=== PATIENT | male | born 1965 | race Caucasian/White ===

== ENCOUNTER 2017-11-02 10:09 | Inpatient (IN) | payer BC ==
[~2017-11-02 10:09] MED LIST: Bisacodyl 5 MG Tab PO PRN; Lactated Ringers 1,000 ML IV SCH; Lidocaine 1%/Sod Bicarbonate in NS 8.4% 1 ML Syringe IV PRN; Magnesium Hydroxide 400 MG/5 ML Susp 30 ML Cup PO PRN; Morphine 2 MG/ML Syringe IVPUSH PRN; Morphine PF 1 MG/ML Amp ONE; Naloxone 0.4 MG/ML SDV IVPUSH PRN; Ondansetron 4 MG/2 ML SDV IVPUSH PRN; Sennosides 8.6 MG Tab PO PRN; Sodium Chloride 0.9% 10 ML Syringe FLUSH PRN; diphenhydrAMINE 50 MG/ML SDV IVPUSH PRN
[2017-11-02] MEDS ORDERED: Morphine PF 1 MG/ML Amp ONE (10:12)
[2017-11-02] MEDS ORDERED: Lactated Ringers 1,000 ML IV SCH (11:00)
[2017-11-02] MEDS ORDERED: ceFAZolin 1 GM Vial ONE ×4 (11:02→13:49)
[2017-11-02] MEDS ORDERED: Iodine/Sodium Iodide 2% Tincture 30 ML Bottle ONE (11:02)
[2017-11-02] MEDS ORDERED: Vancomycin 1 GM SDV ONE (11:02)
[2017-11-02] MEDS ORDERED: Bupivacaine 0.25% 30 ML SDV ONE (11:03)
--- NOTE | 2017-11-02 11:17 | PCM.PREANE ---
Preanesthetic Assessment - Anesthesia/Transfusion/Family Hx Anesthesia History: Prior Anesthesia Without Reaction Other Type of Anesthesia Reaction Comment: Difficult Spinal, converted to general with previous anesthetic. Family History of Anesthesia Reaction: No Transfusion History: No Prior Transfusion(s) Type of Transfusion Reactions: Reports: Unknown - Review of Systems General: No Symptoms Pulmonary: No Symptoms Cardiovascular: No Symptoms Gastrointestinal: Other (Occasional Heart Burn) Neurological: No Symptoms, Other (History of back pain with radiculopathy to left leg. Currently does not bother him. ) Other: Reports: None - Physical Assessment NPO Status Date: 11/01/17 NPO Status Time: 23:00 (Water) Pulse: 67 O2 Sat by Pulse Oximetry: 94 Respiratory Rate: 16 Blood Pressure: 157/99 Temperature: 36.9 C Weight: 144 kg ASA Class: 2 Mental Status: Alert & Oriented x3 Airway Class: Mallampati = 2 Dentition: Reports: Normal Dentition Thyro-Mental Finger Breadths: 3 Mouth Opening Finger Breadths: 3 ROM/Head Extension: Full Lungs: Clear to Auscultation, Normal Respiratory Effort Cardiovascular: Regular Rate, Regular Rhythm - Lab Values: Laboratory Last Values MRSA (PCR) Negative 10/14/17 11:33 - Allergies Allergies/Adverse Reactions: Allergies Allergy/AdvReac Type Severity Reaction Status Date / Time No Known Allergies Allergy Verified 10/30/17 15:43 - Anesthesia Plan Pre-Op Medication Ordered: Anxiolytic - Acknowledgements Anesthesia Type Planned: Spinal Pt an Appropriate Candidate for the Planned Anesthesia: Yes Alternatives and Risks of Anesthesia Discussed w Pt/Guardian: Yes Pt/Guardian Understands and Agrees with Anesthesia Plan: Yes PreAnesthesia Questionnaire HEENT History: Reports: Impaired Vision Other HEENT History: wears corective lenses, pharyngitis Cardiovascular History: Reports: None Respiratory History: Reports: None Gastrointestinal History: Reports: GERD, Hiatal Hernia Genitourinary History: Reports: None 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 Musculoskeletal History: Reports: Other (See Below) Other Musculoskeletal History: bilateral knee pain, left SI joint pain, sacroilitis Neurological History: Reports: Other (See Below) Other Neuro History: tremor Psychiatric History: Reports: Depression, Other (See Below) Other Psychiatric History: anxiety attack Endocrine/Metabolic History: Reports: Obesity/BMI 30+ Hematologic History: Reports: None Immunologic History: Reports: None Oncologic (Cancer) History: Reports: None Dermatologic History: Reports: Other (See Below) 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, removed 1985 - Past Surgical History Head Surgeries/Procedures: Reports: None HEENT Surgical History: Reports: None Cardiovascular Surgical History: Reports: None Respiratory Surgical History: Reports: None GI Surgical History: Reports: None Female Surgical History: Reports: None Male Surgical History: Reports: None Neurological Surgical History: Reports: None Musculoskeletal Surgical History: Reports: Arthroscopic Knee Other Musculoskeletal Surgeries/Procedures:: left knee replacement 12/08/16 Oncologic Surgical History: Reports: None Dermatological Surgical History: Reports: None - SUBSTANCE USE Smoking Status *Q: Never Smoker Tobacco Use Within Last Twelve Months: No Second Hand Smoke Exposure: No Recreational Drug Use History: No - HOME MEDS Home Medications: Home Meds Omeprazole 20 mg PO BID 11/03/16 [History] Meloxicam [Meloxicam] 15 mg PO DAILY PRN 10/30/17 [History] Orphenadrine [Norflex] 100 mg PO BEDTIME 10/30/17 [History] traMADol HCl [Tramadol HCl] 50 mg PO Q12H PRN 10/30/17 [History] - CURRENT (IN HOUSE) MEDS Current Meds: Current Medications Bisacodyl (Dulcolax) 5 mg PO DAILY PRN PRN Reason: Constipation Cyclobenzaprine HCl (Flexeril) 10 mg PO TID PRN PRN Reason: Spasms Diphenhydramine HCl (Benadryl) 25 mg IVPUSH Q4H PRN PRN Reason: Nausea Docusate Sodium (Colace) 100 mg PO BID MARIELLE Famotidine (Pepcid) 20 mg PO Q12H MARIELLE Cefazolin Sodium/Dextrose 2 gm (/ Premix) 50 mls @ 100 mls/hr IV Q8H MARIELLE Stop: 11/02/17 23:14 Lactated Ringer's (Ringers, Lactated) 1,000 mls @ 125 mls/hr IV ASDIRECTED MARIELLE Stop: 11/02/17 18:00 Ketorolac Tromethamine (Toradol) 15 mg IVPUSH Q6H PRN PRN Reason: Pain Lidocaine/Sodium Bicarbonate (Buffered Lidocaine 1% In Ns 8.4%) 0.25 ml IV ONETIME PRN PRN Reason: Prior to IV Start Stop: 11/02/17 18:00 Magnesium Hydroxide (Milk Of Magnesia) 30 ml PO BID PRN PRN Reason: Constipation Morphine Sulfate (Morphine) 2 mg IVPUSH Q2H PRN PRN Reason: Breakthrough Pain Naloxone HCl (Narcan) 0.1 mg IVPUSH Q5M PRN PRN Reason: Oversedation Ondansetron HCl (Zofran) 4 mg IVPUSH Q6H PRN PRN Reason: Nausea/Vomiting Oxycodone/Acetaminophen (Percocet 325-5 Mg) 1 - 2 tab PO Q4H PRN PRN Reason: Pain Rivaroxaban (Xarelto) 10 mg PO DAILY MARIELLE Senna (Senna) 8.6 mg PO BID PRN PRN Reason: Constipation Sodium Chloride (Saline Flush) 10 ml FLUSH ASDIRECTED PRN PRN Reason: Keep Vein Open Discontinued Medications Morphine Sulfate 8 mg/Epinephrine HCl 0.3 mg/Cefuroxime Sodium 750 mg/Ketorolac Tromethamine 30 mg/Sodium Chloride 27.9 ml 0 mg .XX ONETIME ONE Stop: 11/02/17 06:45 Lactated Ringer's (Ringers, Lactated) 1,000 mls @ 125 mls/hr IV ASDIRECTED [facility] Morphine Sulfate (Duramorph Pf) Confirm Administered Dose 1 mg .ROUTE .STK-MED ONE Stop: 11/02/17 09:40 Morphine Sulfate (Duramorph Pf) Confirm Administered Dose 1 mg .ROUTE .STK-MED ONE Stop: 11/02/17 10:13
[2017-11-02] MEDS ORDERED: Lactated Ringers 1,000 ML ONE ×3 (11:38→13:02)
[2017-11-02] MEDS ORDERED: Propofol 200 MG/20 ML SDV ONE ×2 (11:38→13:18)
[2017-11-02] MEDS ORDERED: Lidocaine 1% 6 ML ONE (11:39)
[2017-11-02] MEDS ORDERED: Midazolam 1 MG/ML 2 ML SDV ONE ×2 (11:39→11:48)
[2017-11-02] MEDS ORDERED: fentaNYL 250 MCG/5 ML SDV ONE (11:39)
[2017-11-02] MEDS ORDERED: Ketamine 500 mg/10 ML MDV ONE (12:28)
[2017-11-02] MEDS ORDERED: Ketorolac 30 MG/ML SDV ONE (13:00)
[2017-11-02] MEDS ORDERED: Ondansetron 4 MG/2 ML SDV ONE (13:02)
[2017-11-02] MEDS ORDERED: Dexamethasone 4 MG/ML 5 ML MDV ONE (13:03)
[2017-11-02] MEDS ORDERED: Ondansetron 4 MG/2 ML SDV IVPUSH PRN (13:17)
[2017-11-02] MEDS ORDERED: diphenhydrAMINE 50 MG/ML SDV IVPUSH PRN (13:17)
[2017-11-02] MEDS ORDERED: ePHEDrine 50 MG/ML SDV IVPUSH PRN (13:17)
[2017-11-02] MEDS: Morphine 8 MG, EPINEPHrine 0.3 MG, Cefuroxime 750 MG, Ketorolac 30 MG, Sodium Chloride ... ONE ×5 (13:34)
--- NOTE | 2017-11-02 14:26 | PCM.POSTAN ---
POST ANESTHESIA ASSESSMENT - MENTAL STATUS Mental Status: Alert, Oriented - VITAL SIGNS Pulse Rate: 76 SaO2: 94 Resp Rate: 17 Blood Pressure: 120/82 Temperature: 36.7 C - RESPIRATORY Respiratory Status: Respiratory Rate WNL, Airway Patent, O2 Saturation Stable, Supplemental Oxygen - CARDIOVASCULAR CV Status: Pulse Rate WNL, Blood Pressure Stable - GASTROINTESTINAL GI Status: No Symptoms - PAIN Pain Score: 0 - POST OP HYDRATION Hydration Status: Adequate & Stable
--- NOTE | 2017-11-02 15:03 | CR ---
Right knee: AP and lateral views of the right knee were obtained. Comparison: Previous right knee study of 04/23/16. Knee prosthesis is seen. Components are aligned. Underlying bony structures are intact. Soft tissue air is noted from the surgical procedure. No underlying bony abnormality is seen. Impression: 1. Satisfactory postop radiographic appearance of recently placed right knee prosthesis. Diagnostic code #2
[2017-11-02] MEDS ORDERED: HYDROmorphone 0.5 MG/0.5 ML Syringe ONE (15:27)
[2017-11-02] MEDS ORDERED: HYDROmorphone 1 MG/ML Syringe IVPUSH ONE (15:35)
[2017-11-02] MEDS: Acetaminophen/oxyCODONE 325-5 MG Tab PO PRN (19:20)
[2017-11-02] MEDS: ceFAZolin 1 GM in Premix Bag 1 BAG IV SCH (21:21)
[2017-11-02] MEDS: ceFAZolin 2 GM in Premix Bag 1 BAG IV SCH (21:21)
[2017-11-02] MEDS: Famotidine 20 MG Tab PO SCH (21:26)
[2017-11-02] MEDS: Docusate Sodium 100 MG Cap PO SCH (21:26)
[2017-11-02] MEDS: Cyclobenzaprine 10 MG Tab PO PRN (22:13)
--- NOTE | 2017-11-02 22:30 | PCM.CONS ---
H&P History of Present Illness - General Date of Service: 11/02/17 Admit Problem/Dx: Admission Diagnosis/Problem Admission Diagnosis/Problem Osteoarthritis of knee Source of Information: Patient, Family, RN, RN Notes Reviewed, Significant Other , Other (Surgical notes) History Limitations: Reports: No Limitations - History of Present Illness Initial Comments - Free Text/Narative: Mat Allen is a 52 yo male patient of Dr. Last who is post-operative day 0 of right TKA. Hospital medicine was consulted for post-operative medical care. At this time he is resting comfortably in bed. Pain is controlled. He denies any chest pain, shortness of breath, palpitations, nausea, or vomiting. He carries a history of: Prior left TKA, impaired vision, GERD, depression, anxiety, obesity. He was never a smoker. He is a full code. His primary care provider is Jaron Rodriguez PA-C, here at [facility]. Right Knee Pain Score (Numeric/FACES): 2 - Related Data Allergies/Adverse Reactions: Allergies Allergy/AdvReac Type Severity Reaction Status Date / Time No Known Allergies Allergy Verified 11/02/17 16:31 Home Medications: Home Meds Omeprazole 20 mg PO BID 11/03/16 [History] Meloxicam [Meloxicam] 15 mg PO DAILY PRN 10/30/17 [History] Orphenadrine [Norflex] 100 mg PO BEDTIME 10/30/17 [History] traMADol HCl [Tramadol HCl] 50 mg PO Q12H PRN 10/30/17 [History] Past Medical History HEENT History: Reports: Impaired Vision Other HEENT History: wears corective lenses, pharyngitis Cardiovascular History: Reports: None Respiratory History: Reports: None Gastrointestinal History: Reports: GERD, Hiatal Hernia Genitourinary History: Reports: None 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 Musculoskeletal History: Reports: Other (See Below) Other Musculoskeletal History: bilateral knee pain, left SI joint pain, sacroilitis Neurological History: Reports: Other (See Below) Other Neuro History: tremor Psychiatric History: Reports: Depression, Other (See Below) Other Psychiatric History: anxiety attack Endocrine/Metabolic History: Reports: Obesity/BMI 30+ Hematologic History: Reports: None Immunologic History: Reports: None Oncologic (Cancer) History: Reports: None Dermatologic History: Reports: Other (See Below) 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, removed 1984 - Past Surgical History Head Surgeries/Procedures: Reports: None HEENT Surgical History: Reports: None Cardiovascular Surgical History: Reports: None Respiratory Surgical History: Reports: None GI Surgical History: Reports: None Female Surgical History: Reports: None Male Surgical History: Reports: None Neurological Surgical History: Reports: None Musculoskeletal Surgical History: Reports: Arthroscopic Knee Other Musculoskeletal Surgeries/Procedures:: left knee replacement 12/08/16 Oncologic Surgical History: Reports: None Dermatological Surgical History: Reports: None Social & Family History - Family History Family Medical History: Noncontributory - Tobacco Use Smoking Status *Q: Never Smoker Used Tobacco, but Quit: Yes Month Tobacco Last Used: states he stopped smoking long ago Second Hand Smoke Exposure: No - Caffeine Use Caffeine Use: Reports: Coffee, Soda - Recreational Drug Use Recreational Drug Use: No Drug Use in Last 12 Months: No H&P Review of Systems - Review of Systems: Review Of Systems: See Below General: Reports: No Symptoms. Denies: Fever, Chills, Malaise, Weakness, Fatigue HEENT: Reports: No Symptoms. Denies: Ear Pain, Eye Pain, Sinus Congestion, Sore Throat, Visual Changes Pulmonary: Reports: No Symptoms. Denies: Shortness of Breath, Wheezing, Pleuritic Chest Pain, Cough, Sputum Cardiovascular: Reports: No Symptoms. Denies: Chest Pain, Palpitations, Dyspnea on Exertion, Edema Gastrointestinal: Reports: No Symptoms. Denies: Abdominal Pain, Constipation, Diarrhea, Nausea, Vomiting Genitourinary: Reports: No Symptoms. Denies: Dysuria, Frequency, Burning, Pain , Urgency Musculoskeletal: Reports: Joint Pain (right knee - 2/10 ), Muscle Pain (right leg - Flexeril given ). Denies: Neck Pain, Shoulder Pain, Arm Pain, Back Pain Skin: Reports: No Symptoms Psychiatric: Reports: No Symptoms Neurological: Reports: No Symptoms Hematologic/Lymphatic: Reports: No Symptoms Immunologic: Reports: No Symptoms Exam - Exam Exam: See Below - Vital Signs Vital Signs: Last Vital Signs Temp 98.6 F 11/02/17 19:43 Pulse 86 11/02/17 19:43 Resp 20 11/02/17 19:43 BP 142/92 H 11/02/17 19:43 Pulse Ox 94 L 11/02/17 19:43 Weight: 317 lb 7.45 oz - Exam Quality Assessment: DVT Prophylaxis General: Alert, Oriented, Cooperative. No: Mild Distress HEENT: Conjunctiva Clear, EACs Clear, EOMI, Hearing Intact, Mucosa Moist & Hepler , Nares Patent, Normal Nasal Septum, Posterior Pharynx Clear, PERRLA Neck: Supple, Trachea Midline. No: Lymphadenopathy, JVD Lungs: Clear to Auscultation, Normal Respiratory Effort Cardiovascular: Regular Rate, Regular Rhythm GI/Abdominal Exam: Normal Bowel Sounds, Soft, Non-Tender, No Organomegaly, No Distention, No Abnormal Bruit, No Mass, Pelvis Stable (Male) Exam: Deferred Rectal (Males) Exam: Deferred Back Exam: Normal Inspection, Full Range of Motion Extremities: No Pedal Edema, Normal Capillary Refill, Other (JOSE MANUEL bandage on right leg. Bandage is dry and intact. Cooling pack in place. ) Peripheral Pulses: 2+: Radial (L), Radial (R), Posterior Tibial (L), Posterior Tibial (R), Dorsalis Pedis (L), Dorsalis Pedis (R) Skin: Warm, Dry, Intact Neurological: Cranial Nerves Intact (Grossly) Neuro Extensive - Mental Status: Alert, Oriented x3, Normal Mood/Affect, Normal Cognition, Memory Intact Neuro Extensive - Motor, Sensory, Reflexes: CN II-XII Intact (Grossly) Psychiatric: Alert, Normal Affect, Normal Mood Consult PN Assessment/Plan POD#: 0 Procedures: Procedures AQUATIC THERAPY/EXERCISES (03/10/17) ASSAY OF PREALBUMIN (10/22/17) ASSAY OF SERUM ALBUMIN (10/22/17) ASSAY OF TROPONIN QUANT (11/03/16) ASSAY THYROID STIM HORMONE (01/14/17) CARDIOVASCULAR STRESS TEST (11/11/16) CHEST X-RAY 1 VIEW FRONTAL (11/03/16) CHEST X-RAY 2VW FRONTAL&LATL (11/26/16) COMPLETE CBC W/AUTO DIFF WBC (10/22/17) COMPREHEN METABOLIC PANEL (01/14/17) CULTURE SCREEN ONLY (02/10/17) ELECTROCARDIOGRAM TRACING (11/03/16) EMERGENCY DEPT VISIT (12/17/16) EMERGENCY DEPT VISIT (11/03/16) GLYCOSYLATED HEMOGLOBIN TEST (01/14/17) HT MUSCLE IMAGE SPECT MULT (11/11/16) INFLUENZA ASSAY W/OPTIC (02/10/17) LIPID PANEL (02/14/16) MANUAL THERAPY 1/> REGIONS (10/21/17) METABOLIC PANEL TOTAL CA (10/22/17) NEUROMUSCULAR REEDUCATION (02/19/17) OT EVAL LOW COMPLEX 30 MIN (10/21/17) PROTHROMBIN TIME (10/22/17) PT EVAL MOD COMPLEX 30 MIN (12/23/16) ROUTINE VENIPUNCTURE (10/22/17) STREP A AG IA (02/10/17) THER/PROPH/DIAG INJ IV PUSH (12/17/16) THERAPEUTIC EXERCISES (10/21/17) THROMBOPLASTIN TIME PARTIAL (10/22/17) TX/PRO/DX INJ NEW DRUG ADDON (12/17/16) URINALYSIS AUTO W/O SCOPE (02/14/16) VITAMIN D 25 HYDROXY (11/26/16) X-RAY EXAM KNEE 4 OR MORE (04/23/16) X-RAY EXAM L-S SPINE 2/3 VWS (11/07/15) X-RAY EXAM OF KNEE 3 (12/17/16) (1) Osteoarthritis SNOMED Code(s): 608523169 Code(s): M19.90 - UNSPECIFIED OSTEOARTHRITIS, UNSPECIFIED SITE Priority: High Current Visit: Yes Qualifiers: Osteoarthritis location: knee Osteoarthritis type: primary Laterality: right Qualified Code(s): M17.11 - Unilateral primary osteoarthritis, right knee (2) S/P total knee arthroplasty SNOMED Code(s): 4109745767849, 5667296480826 Code(s): Z96.659 - PRESENCE OF UNSPECIFIED ARTIFICIAL KNEE JOINT Priority: High Current Visit: Yes Qualifiers: Laterality: right Qualified Code(s): Z96.651 - Presence of right artificial knee joint (3) Depression SNOMED Code(s): 62499477 Code(s): F32.9 - MAJOR DEPRESSIVE DISORDER, SINGLE EPISODE, UNSPECIFIED Priority: Low Current Visit: Yes Qualifiers: Depression Type: other depression Qualified Code(s): F32.89 - Other specified depressive episodes (4) Anxiety SNOMED Code(s): 60570048 Code(s): F41.9 - ANXIETY DISORDER, UNSPECIFIED Priority: Low Current Visit: Yes (5) Obesity, morbid, BMI 40.0-49.9 SNOMED Code(s): 360841874 Code(s): E66.01 - MORBID (SEVERE) OBESITY DUE TO EXCESS CALORIES Priority: Low Current Visit: Yes (6) GERD (gastroesophageal reflux disease) SNOMED Code(s): 365204496 Code(s): K21.9 - GASTRO-ESOPHAGEAL REFLUX DISEASE WITHOUT ESOPHAGITIS Priority: Medium Current Visit: No Qualifiers: Esophagitis presence: esophagitis presence not specified Qualified Code(s) : K21.9 - Gastro-esophageal reflux disease without esophagitis Problem List Initiated/Reviewed/Updated: Yes Plan: I/P: Acute: S/P right total knee arthroplasty - post-operative day 0 -DVT prophylaxis and pain management per primary care team -PT/OT -IS/RT -Monitor oxygen saturation -Titrate oxygen as needed -Vital signs stable Osteoarthritis of right knee -Pain management per primary care team Chronic: Impaired vision GERD Hx/o Left TKA Anxiety Depression Obesity Plan: SW/CM for discharge planning GI prophylaxis Home medications as indicated Other orders as listed above Routine AM labs He is a full code. His PCP is Jaron Rodriguez PA-C, here at [facility] Thank you for allowing us to participate in the care of this patient!! Requesting Provider: Dr. Last Date Consult Requested: 11/02/17 Reason for Consult: Post-operative medical management Patient History Reviewed: Yes Admission H&P Reviewed: Yes
[2017-11-03] MEDS: Acetaminophen/oxyCODONE 325-5 MG Tab PO PRN ×4 (00:21→15:07)
[2017-11-03] MEDS: ceFAZolin 2 GM in Premix Bag 1 BAG IV SCH ×2 (04:11→11:55)
[2017-11-03] MEDS: ceFAZolin 1 GM in Premix Bag 1 BAG IV SCH ×2 (04:12→11:55)
[2017-11-03] MEDS: Ketorolac 15 MG/ML SDV IVPUSH PRN ×2 (04:30→10:03)
[2017-11-03] MEDS: Cyclobenzaprine 10 MG Tab PO PRN ×2 (06:30→15:59)
[2017-11-03] MEDS: Famotidine 20 MG Tab PO SCH (08:11)
[2017-11-03] MEDS: Docusate Sodium 100 MG Cap PO SCH (08:11)
[2017-11-03] MEDS ORDERED: Rivaroxaban 10 MG Tab PO SCH (09:00)
--- NOTE | 2017-11-03 09:41 | PCM.CONSN ---
- General Info Date of Service: 11/03/17 Admission Dx/Problem (Free Text): Admission Diagnosis/Problem Admission Diagnosis/Problem Osteoarthritis of knee POD #1 s/p Rt TKA Patient doing very well, ambulating early this morning with nursing and again with PT this morning. Pain well controlled, no nausea. Eating breakfast at time of exam. Denies f/c/s, n/v/d, chest pain, coughing, CRAIG, sinus drainage or sore throat. No infectious symptoms. WBC is elevated this am at 22K. UA and CXR to r/o infectious causes; again patient is asymptomatic. Functional Status: Reports: Pain Controlled, Tolerating Diet, Ambulating, Urinating, Incentive Spirometry - Review of Systems General: Reports: No Symptoms HEENT: Reports: No Symptoms Pulmonary: Reports: No Symptoms Cardiovascular: Reports: No Symptoms Gastrointestinal: Reports: No Symptoms Genitourinary: Reports: No Symptoms Musculoskeletal: Reports: Leg Pain Skin: Reports: No Symptoms Neurological: Reports: No Symptoms Psychiatric: Reports: No Symptoms - Patient Data Vitals - Most Recent: Last Vital Signs Temp 99.5 F 11/03/17 08:19 Pulse 77 11/03/17 08:19 Resp 18 11/03/17 09:00 BP 135/70 11/03/17 08:19 Pulse Ox 94 L 11/03/17 08:28 Weight - Most Recent: 328 lb 11.2 oz I&O - Last 24 Hours: Intake & Output 11/02/17 11/03/17 11/03/17 22:59 06:59 14:59 Intake Total 1080 1300 Output Total 150 1600 Balance 930 -300 Lab Results Last 24 Hours: Laboratory Results - last 24 hr 11/03/17 11/03/17 11/03/17 Range/Units 05:36 05:36 05:36 WBC 22.13 H (4.23-9.07) K/mm3 RBC 4.61 L (4.63-6.08) M/mm3 Hgb 13.0 L (13.7-17.5) gm/L Hct 37.2 L (40.1-51.0) % MCV 80.7 (79.0-92.2) fl MCH 28.2 (25.7-32.2) pg MCHC 34.9 (32.2-35.5) g/dl RDW Std Deviation 37.7 (35.1-43.9) fL Plt Count 240 (163-337) K/mm3 MPV 11.5 (9.4-12.3) fl Sodium 135 L (136-145) mEq/L Potassium 4.3 (3.5-5.1) mEq/L Chloride 102 (98-107) mEq/L Carbon Dioxide 23 (21-32) mEq/L Anion Gap 14.3 (5-15) BUN 17 (7-18) mg/dL Creatinine 1.0 (0.7-1.3) mg/dL Est Cr Clr Drug Dosing 97.00 mL/min Estimated GFR (MDRD) > 60 (>60) mL/min BUN/Creatinine Ratio 17.0 (14-18) Glucose 156 H (74-106) mg/dL Hemoglobin A1c 5.60 (4.50-6.20) % Calcium 8.8 (8.5-10.1) mg/dL Total Bilirubin 0.5 (0.2-1.0) mg/dL AST 18 (15-37) U/L ALT 37 (16-63) U/L Alkaline Phosphatase 74 (46-116) U/L Total Protein 6.4 (6.4-8.2) g/dl Albumin 3.1 L (3.4-5.0) g/dl Globulin 3.3 gm/dL Albumin/Globulin Ratio 0.9 L (1-2) Med Orders - Current: Current Medications Bisacodyl (Dulcolax) 5 mg PO DAILY PRN PRN Reason: Constipation Cyclobenzaprine HCl (Flexeril) 10 mg PO TID PRN PRN Reason: Spasms Last Admin: 11/03/17 06:30 Dose: 10 mg Diphenhydramine HCl (Benadryl) 25 mg IVPUSH Q4H PRN PRN Reason: Nausea Docusate Sodium (Colace) 100 mg PO BID [facility] [place] Last Admin: 11/03/17 08:11 Dose: 100 mg Famotidine (Pepcid) 20 mg PO Q12H [facility] [place] Last Admin: 11/03/17 08:11 Dose: 20 mg Cefazolin Sodium/Dextrose 2 gm (/ Premix) 50 mls @ 100 mls/hr IV Q8H [facility] [place] Stop: 11/03/17 12:29 Last Admin: 11/03/17 04:11 Dose: 100 mls/hr Cefazolin Sodium/Dextrose 1 gm (/ Premix) 50 mls @ 100 mls/hr IV Q8H [facility] [place] Stop: 11/03/17 12:29 Last Admin: 11/03/17 04:12 Dose: 100 mls/hr Ketorolac Tromethamine (Toradol) 15 mg IVPUSH Q6H PRN PRN Reason: Pain Last Admin: 11/03/17 04:30 Dose: 15 mg Magnesium Hydroxide (Milk Of Magnesia) 30 ml PO BID PRN PRN Reason: Constipation Morphine Sulfate (Morphine) 2 mg IVPUSH Q2H PRN PRN Reason: Breakthrough Pain Naloxone HCl (Narcan) 0.1 mg IVPUSH Q5M PRN PRN Reason: Oversedation Ondansetron HCl (Zofran) 4 mg IVPUSH Q6H PRN PRN Reason: Nausea/Vomiting Oxycodone/Acetaminophen (Percocet 325-5 Mg) 1 - 2 tab PO Q4H PRN PRN Reason: Pain Last Admin: 11/03/17 08:13 Dose: 2 tab Rivaroxaban (Xarelto) 10 mg PO DAILY [facility] [place] Last Admin: 11/03/17 08:12 Dose: 10 mg Senna (Senna) 8.6 mg PO BID PRN PRN Reason: Constipation Discontinued Medications Bupivacaine HCl (Marcaine 0.25%) Confirm Administered Dose 30 ml .ROUTE .STK- MED ONE Stop: 11/02/17 11:04 Last Admin: 11/02/17 13:55 Dose: 30 ml Cefazolin Sodium (Ancef) Confirm Administered Dose 2 gm .ROUTE .STK-MED ONE Stop: 11/02/17 11:03 Cefazolin Sodium (Ancef) Confirm Administered Dose 2 gm .ROUTE .STK-MED ONE Stop: 11/02/17 11:39 Cefazolin Sodium (Ancef) Confirm Administered Dose 1 gm .ROUTE .STK-MED ONE Stop: 11/02/17 13:01 Last Admin: 11/02/17 13:25 Dose: 2 gm Cefazolin Sodium (Ancef) Confirm Administered Dose 2 gm .ROUTE .STK-MED ONE Stop: 11/02/17 13:50 Morphine Sulfate 8 mg/Epinephrine HCl 0.3 mg/Cefuroxime Sodium 750 mg/Ketorolac Tromethamine 30 mg/Sodium Chloride 27.9 ml 0 mg .XX ONETIME ONE Stop: 11/02/17 06:45 Last Admin: 11/02/17 13:34 Dose: 788.3 mg Dexamethasone (Dexamethasone) Confirm Administered Dose 20 mg .ROUTE .STK-MED ONE Stop: 11/02/17 13:04 Diphenhydramine HCl (Benadryl) 25 mg IVPUSH Q6H PRN PRN Reason: Pruritis Stop: 11/02/17 15:00 Ephedrine Sulfate (Ephedrine Sulfate) 5 mg IVPUSH ASDIRECTED PRN PRN Reason: Hypotension Stop: 11/02/17 15:00 Fentanyl (Sublimaze) Confirm Administered Dose 250 mcg .ROUTE .STK-MED ONE Stop: 11/02/17 11:40 Hydromorphone HCl (Dilaudid) 0.5 mg IVPUSH ONETIME ONE Stop: 11/02/17 15:36 Last Admin: 11/02/17 16:25 Dose: Not Given Hydromorphone HCl (Dilaudid) Confirm Administered Dose 0.5 mg .ROUTE .STK-MED ONE Stop: 11/02/17 15:28 Last Admin: 11/02/17 15:35 Dose: 0.5 mg Lactated Ringer's (Ringers, Lactated) 1,000 mls @ 125 mls/hr IV ASDIRECTED MARIELLE Lactated Ringer's (Ringers, Lactated) 1,000 mls @ 125 mls/hr IV ASDIRECTED MARIELLE Stop: 11/02/17 18:00 Last Admin: 11/02/17 11:00 Dose: 125 mls/hr Lactated Ringer's (Ringers, Lactated) Confirm Administered Dose 1,000 mls @ as directed .ROUTE .STK-MED ONE Stop: 11/02/17 11:39 Lidocaine HCl (Xylocaine-Mpf 1%) Confirm Administered Dose 6 mls @ as directed .ROUTE .STK-MED ONE Stop: 11/02/17 11:40 Lactated Ringer's (Ringers, Lactated) Confirm Administered Dose 1,000 mls @ as directed .ROUTE .STK-MED ONE Stop: 11/02/17 13:03 Lactated Ringer's (Ringers, Lactated) Confirm Administered Dose 1,000 mls @ as directed .ROUTE .STK-MED ONE Stop: 11/02/17 13:03 Iodine (Iodine 2% Mild Tincture) Confirm Administered Dose 30 ml .ROUTE .STK- MED ONE Stop: 11/02/17 11:03 Last Admin: 11/02/17 13:22 Dose: 18 ml Ketamine HCl (Ketalar) Confirm Administered Dose 500 mg .ROUTE .STK-MED ONE Stop: 11/02/17 12:29 Ketorolac Tromethamine (Toradol) Confirm Administered Dose 30 mg .ROUTE .STK- MED ONE Stop: 11/02/17 13:01 Lidocaine/Sodium Bicarbonate (Buffered Lidocaine 1% In Ns 8.4%) 0.25 ml IV ONETIME PRN PRN Reason: Prior to IV Start Stop: 11/02/17 18:00 Last Admin: 11/02/17 10:59 Dose: 0.25 ml Midazolam HCl (Versed 1 Mg/Ml) Confirm Administered Dose 2 mg .ROUTE .STK-MED ONE Stop: 11/02/17 11:40 Midazolam HCl (Versed 1 Mg/Ml) Confirm Administered Dose 2 mg .ROUTE .STK-MED ONE Stop: 11/02/17 11:49 Morphine Sulfate (Duramorph Pf) Confirm Administered Dose 1 mg .ROUTE .STK-MED ONE Stop: 11/02/17 09:40 Morphine Sulfate (Duramorph Pf) Confirm Administered Dose 1 mg .ROUTE .STK-MED ONE Stop: 11/02/17 10:13 Ondansetron HCl (Zofran) Confirm Administered Dose 4 mg .ROUTE .STK-MED ONE Stop: 11/02/17 13:03 Ondansetron HCl (Zofran) 4 mg IVPUSH ONETIME PRN PRN Reason: Nausea/Vomiting Stop: 11/02/17 15:00 Propofol (Diprivan 20 Ml) Confirm Administered Dose 600 mg .ROUTE .STK-MED ONE Stop: 11/02/17 11:39 Propofol (Diprivan 20 Ml) Confirm Administered Dose 600 mg .ROUTE .STK-MED ONE Stop: 11/02/17 13:19 Sodium Chloride (Saline Flush) 10 ml FLUSH ASDIRECTED PRN PRN Reason: Keep Vein Open Tranexamic Acid (Cyklokapron) Confirm Administered Dose 1,000 mg .ROUTE .STK- MED ONE Stop: 11/02/17 11:03 Last Admin: 11/02/17 13:37 Dose: 1,000 mg Vancomycin HCl (Vancomycin) Confirm Administered Dose 1 gm .ROUTE .STK-MED ONE Stop: 11/02/17 11:03 Last Admin: 11/02/17 13:36 Dose: 1 gm - Exam Quality Assessment: DVT Prophylaxis General: Alert, Oriented, Cooperative, No Acute Distress HEENT: Pupils Equal, EOMI, Mucous Membr. Moist/[place] Neck: Supple Lungs: Clear to Auscultation, Normal Respiratory Effort Cardiovascular: Regular Rate, Regular Rhythm GI/Abdominal Exam: Normal Bowel Sounds, Soft, Non-Tender (Male) Exam: Deferred Extremities: Other (rt leg with micheline wrap and ice to knee. CMS + and = distally to bilat LE) Peripheral Pulses: 2+: Dorsalis Pedis (L), Dorsalis Pedis (R) Neurological: No New Focal Deficit Psy/Mental Status: Alert, Normal Affect, Normal Mood Consult PN Assessment/Plan POD#: 1 Procedures: Procedures AQUATIC THERAPY/EXERCISES (03/10/17) ASSAY OF PREALBUMIN (10/22/17) ASSAY OF SERUM ALBUMIN (10/22/17) ASSAY OF TROPONIN QUANT (11/03/16) ASSAY THYROID STIM HORMONE (01/14/17) CARDIOVASCULAR STRESS TEST (11/11/16) CHEST X-RAY 1 VIEW FRONTAL (11/03/16) CHEST X-RAY 2VW FRONTAL&LATL (11/26/16) COMPLETE CBC W/AUTO DIFF WBC (10/22/17) COMPREHEN METABOLIC PANEL (01/14/17) CULTURE SCREEN ONLY (02/10/17) ELECTROCARDIOGRAM TRACING (11/03/16) EMERGENCY DEPT VISIT (12/17/16) EMERGENCY DEPT VISIT (11/03/16) GLYCOSYLATED HEMOGLOBIN TEST (01/14/17) HT MUSCLE IMAGE SPECT MULT (11/11/16) INFLUENZA ASSAY W/OPTIC (02/10/17) LIPID PANEL (02/14/16) MANUAL THERAPY 1/> REGIONS (10/21/17) METABOLIC PANEL TOTAL CA (10/22/17) NEUROMUSCULAR REEDUCATION (02/19/17) OT EVAL LOW COMPLEX 30 MIN (10/21/17) PROTHROMBIN TIME (10/22/17) PT EVAL MOD COMPLEX 30 MIN (12/23/16) ROUTINE VENIPUNCTURE (10/22/17) STREP A AG IA (02/10/17) THER/PROPH/DIAG INJ IV PUSH (12/17/16) THERAPEUTIC EXERCISES (10/21/17) THROMBOPLASTIN TIME PARTIAL (10/22/17) TX/PRO/DX INJ NEW DRUG ADDON (12/17/16) URINALYSIS AUTO W/O SCOPE (02/14/16) VITAMIN D 25 HYDROXY (11/26/16) X-RAY EXAM KNEE 4 OR MORE (04/23/16) X-RAY EXAM L-S SPINE 2/3 VWS (11/07/15) X-RAY EXAM OF KNEE 3 (12/17/16) (1) S/P total knee arthroplasty SNOMED Code(s): 4307891110091, 9324406488993 Code(s): Z96.659 - PRESENCE OF UNSPECIFIED ARTIFICIAL KNEE JOINT Priority: High Current Visit: Yes Qualifiers: Laterality: right Qualified Code(s): Z96.651 - Presence of right artificial knee joint (2) Osteoarthritis SNOMED Code(s): 368298050 Code(s): M19.90 - UNSPECIFIED OSTEOARTHRITIS, UNSPECIFIED SITE Priority: High Current Visit: Yes Qualifiers: Osteoarthritis location: knee Osteoarthritis type: primary Laterality: right Qualified Code(s): M17.11 - Unilateral primary osteoarthritis, right knee (3) Elevated WBC count SNOMED Code(s): 304088171 Code(s): D72.829 - ELEVATED WHITE BLOOD CELL COUNT, UNSPECIFIED Priority: High Current Visit: Yes Qualifiers: Leukocytosis type: unspecified Qualified Code(s): D72.829 - Elevated white blood cell count, unspecified (4) Anxiety SNOMED Code(s): 55154289 Code(s): F41.9 - ANXIETY DISORDER, UNSPECIFIED Priority: Low Current Visit: Yes (5) Depression SNOMED Code(s): 26085086 Code(s): F32.9 - MAJOR DEPRESSIVE DISORDER, SINGLE EPISODE, UNSPECIFIED Priority: Low Current Visit: Yes Qualifiers: Depression Type: other depression Qualified Code(s): F32.89 - Other specified depressive episodes (6) Obesity, morbid, BMI 40.0-49.9 SNOMED Code(s): 846738136 Code(s): E66.01 - MORBID (SEVERE) OBESITY DUE TO EXCESS CALORIES Priority: Low Current Visit: Yes (7) GERD (gastroesophageal reflux disease) SNOMED Code(s): 612300392 Code(s): K21.9 - GASTRO-ESOPHAGEAL REFLUX DISEASE WITHOUT ESOPHAGITIS Priority: Medium Current Visit: No Qualifiers: Esophagitis presence: esophagitis presence not specified Qualified Code(s) : K21.9 - Gastro-esophageal reflux disease without esophagitis Problem List Initiated/Reviewed/Updated: Yes My Orders Last 24 Hours: My Active Orders 11/03/17 07:46 UA W/MICROSCOPIC [URIN] Routine 11/03/17 08:57 Chest 2V [CR] Routine Plan: I/P: S/P total right knee arthroplasty, POD # 1, Dr. Last - Pain management and DVT prophylax - PT/OT - RT/IS - Hgb 13.0 Elevated WBC postoperative Day #1-- 22.13; preop on 10/22 was 8.3 -Eval with UA and CXR -Patient is asymptomatic -Recommend recheck WBC in one week with PCP to follow Chronic conditions: GERD Depression Anxiety Obesity Other: GI Prophylax CM/SW for DC planning- okay for discharge home today for hospitalist service pending results of UA and chest x-ray. Again recommend recheck of WBC in 1 week as noted above. Patient is full Code status. Patient's PCP is Jaron Rodriguez PA-C with [facility] clinic in [facility].
--- NOTE | 2017-11-03 11:18 | CR ---
Chest: Two views of the chest were obtained. Comparison: Prior chest x-ray of 11/26/16. Heart size and mediastinum are normal. Lungs are clear. Minimal degenerative change is scattered within the spine. Impression: 1. Incidental finding. Nothing acute is identified. Diagnostic code #2
[2017-11-03 12:52] VITALS: BP 121/85
[2017-11-03] MEDS: Morphine 8 MG, EPINEPHrine 0.3 MG, Cefuroxime 750 MG, Ketorolac 30 MG, Sodium Chloride ... ONE ×5 (15:40)
--- NOTE | 2017-11-03 16:47 | PCM.SURGPN ---
- General Info Date of Service: 11/03/17 POD#: 1 Functional Status: Reports: Pain Controlled, Tolerating Diet, Ambulating, Urinating - Review of Systems Musculoskeletal: Reports: Other (The pt thinks he is moving around better after this TKA vs his left TKA.) - Patient Data Vitals - Most Recent: Last Vital Signs Temp 99.1 F 11/03/17 12:45 Pulse 66 11/03/17 12:45 Resp 16 11/03/17 16:00 BP 121/85 11/03/17 12:45 Pulse Ox 92 L 11/03/17 12:45 Weight - Most Recent: 328 lb 11.2 oz I&O - Last 24 Hours: Intake & Output 11/03/17 11/03/17 11/03/17 06:59 14:59 22:59 Intake Total 1300 100 Output Total 1600 Balance -300 100 Lab Results Last 24 Hrs: Laboratory Results - last 24 hr 11/03/17 11/03/17 11/03/17 Range/Units 05:36 05:36 05:36 WBC 22.13 H (4.23-9.07) K/mm3 RBC 4.61 L (4.63-6.08) M/mm3 Hgb 13.0 L (13.7-17.5) gm/L Hct 37.2 L (40.1-51.0) % MCV 80.7 (79.0-92.2) fl MCH 28.2 (25.7-32.2) pg MCHC 34.9 (32.2-35.5) g/dl RDW Std Deviation 37.7 (35.1-43.9) fL Plt Count 240 (163-337) K/mm3 MPV 11.5 (9.4-12.3) fl Sodium 135 L (136-145) mEq/L Potassium 4.3 (3.5-5.1) mEq/L Chloride 102 (98-107) mEq/L Carbon Dioxide 23 (21-32) mEq/L Anion Gap 14.3 (5-15) BUN 17 (7-18) mg/dL Creatinine 1.0 (0.7-1.3) mg/dL Est Cr Clr Drug Dosing 97.00 mL/min Estimated GFR (MDRD) > 60 (>60) mL/min BUN/Creatinine Ratio 17.0 (14-18) Glucose 156 H (74-106) mg/dL Hemoglobin A1c 5.60 (4.50-6.20) % Calcium 8.8 (8.5-10.1) mg/dL Total Bilirubin 0.5 (0.2-1.0) mg/dL AST 18 (15-37) U/L ALT 37 (16-63) U/L Alkaline Phosphatase 74 (46-116) U/L Total Protein 6.4 (6.4-8.2) g/dl Albumin 3.1 L (3.4-5.0) g/dl Globulin 3.3 gm/dL Albumin/Globulin Ratio 0.9 L (1-2) Urine Color (Yellow) Urine Appearance (Clear) Urine pH (5.0-8.0) Ur Specific [place] (1.005-1.030) Urine Protein (Negative) Urine Glucose (UA) (Negative) Urine Ketones (Negative) Urine Occult Blood (Negative) Urine Nitrite (Negative) Urine Bilirubin (Negative) Urine Urobilinogen (0.2-1.0) Ur Leukocyte Esterase (Negative) Urine RBC (0-5) /hpf Urine WBC (0-5) /hpf Ur Epithelial Cells (0-5) /hpf Urine Bacteria (FEW) /hpf Urine Mucus (FEW) /hpf 11/03/17 11/03/17 Range/Units 10:50 11:20 WBC 20.60 H (4.23-9.07) K/mm3 RBC (4.63-6.08) M/mm3 Hgb (13.7-17.5) gm/L Hct (40.1-51.0) % MCV (79.0-92.2) fl MCH (25.7-32.2) pg MCHC (32.2-35.5) g/dl RDW Std Deviation (35.1-43.9) fL Plt Count (163-337) K/mm3 MPV (9.4-12.3) fl Sodium (136-145) mEq/L Potassium (3.5-5.1) mEq/L Chloride (98-107) mEq/L Carbon Dioxide (21-32) mEq/L Anion Gap (5-15) BUN (7-18) mg/dL Creatinine (0.7-1.3) mg/dL Est Cr Clr Drug Dosing mL/min Estimated GFR (MDRD) (>60) mL/min BUN/Creatinine Ratio (14-18) Glucose (74-106) mg/dL Hemoglobin A1c (4.50-6.20) % Calcium (8.5-10.1) mg/dL Total Bilirubin (0.2-1.0) mg/dL AST (15-37) U/L ALT (16-63) U/L Alkaline Phosphatase (46-116) U/L Total Protein (6.4-8.2) g/dl Albumin (3.4-5.0) g/dl Globulin gm/dL Albumin/Globulin Ratio (1-2) Urine Color Yellow (Yellow) Urine Appearance Clear (Clear) Urine pH 6.0 (5.0-8.0) Ur Specific [place] 1.010 (1.005-1.030) Urine Protein Negative (Negative) Urine Glucose (UA) Negative (Negative) Urine Ketones Negative (Negative) Urine Occult Blood Negative (Negative) Urine Nitrite Negative (Negative) Urine Bilirubin Negative (Negative) Urine Urobilinogen 0.2 (0.2-1.0) Ur Leukocyte Esterase Negative (Negative) Urine RBC 0-5 (0-5) /hpf Urine WBC 0-5 (0-5) /hpf Ur Epithelial Cells 0-5 (0-5) /hpf Urine Bacteria Few (FEW) /hpf Urine Mucus Not seen (FEW) /hpf Med Orders - Current: Current Medications Bisacodyl (Dulcolax) 5 mg PO DAILY PRN PRN Reason: Constipation Cyclobenzaprine HCl (Flexeril) 10 mg PO TID PRN PRN Reason: Spasms Last Admin: 11/03/17 15:59 Dose: 10 mg Diphenhydramine HCl (Benadryl) 25 mg IVPUSH Q4H PRN PRN Reason: Nausea Docusate Sodium (Colace) 100 mg PO BID [facility] Last Admin: 11/03/17 08:11 Dose: 100 mg Famotidine (Pepcid) 20 mg PO Q12H [facility] Last Admin: 11/03/17 08:11 Dose: 20 mg Ketorolac Tromethamine (Toradol) 15 mg IVPUSH Q6H PRN PRN Reason: Pain Last Admin: 11/03/17 10:03 Dose: 15 mg Magnesium Hydroxide (Milk Of Magnesia) 30 ml PO BID PRN PRN Reason: Constipation Morphine Sulfate (Morphine) 2 mg IVPUSH Q2H PRN PRN Reason: Breakthrough Pain Naloxone HCl (Narcan) 0.1 mg IVPUSH Q5M PRN PRN Reason: Oversedation Ondansetron HCl (Zofran) 4 mg IVPUSH Q6H PRN PRN Reason: Nausea/Vomiting Oxycodone/Acetaminophen (Percocet 325-5 Mg) 1 - 2 tab PO Q4H PRN PRN Reason: Pain Last Admin: 11/03/17 15:07 Dose: 2 tab Rivaroxaban (Xarelto) 10 mg PO DAILY [facility] Last Admin: 11/03/17 08:12 Dose: 10 mg Senna (Senna) 8.6 mg PO BID PRN PRN Reason: Constipation Discontinued Medications Bupivacaine HCl (Marcaine 0.25%) Confirm Administered Dose 30 ml .ROUTE .STK- MED ONE Stop: 11/02/17 11:04 Last Admin: 11/02/17 13:55 Dose: 30 ml Cefazolin Sodium (Ancef) Confirm Administered Dose 2 gm .ROUTE .STK-MED ONE Stop: 11/02/17 11:03 Cefazolin Sodium (Ancef) Confirm Administered Dose 2 gm .ROUTE .STK-MED ONE Stop: 11/02/17 11:39 Cefazolin Sodium (Ancef) Confirm Administered Dose 1 gm .ROUTE .STK-MED ONE Stop: 11/02/17 13:01 Last Admin: 11/02/17 13:25 Dose: 2 gm Cefazolin Sodium (Ancef) Confirm Administered Dose 2 gm .ROUTE .STK-MED ONE Stop: 11/02/17 13:50 Morphine Sulfate 8 mg/Epinephrine HCl 0.3 mg/Cefuroxime Sodium 750 mg/Ketorolac Tromethamine 30 mg/Sodium Chloride 27.9 ml 0 mg .XX ONETIME ONE Stop: 11/02/17 06:45 Last Admin: 11/03/17 15:40 Dose: Not Given Dexamethasone (Dexamethasone) Confirm Administered Dose 20 mg .ROUTE .STK-MED ONE Stop: 11/02/17 13:04 Diphenhydramine HCl (Benadryl) 25 mg IVPUSH Q6H PRN PRN Reason: Pruritis Stop: 11/02/17 15:00 Ephedrine Sulfate (Ephedrine Sulfate) 5 mg IVPUSH ASDIRECTED PRN PRN Reason: Hypotension Stop: 11/02/17 15:00 Fentanyl (Sublimaze) Confirm Administered Dose 250 mcg .ROUTE .STK-MED ONE Stop: 11/02/17 11:40 Hydromorphone HCl (Dilaudid) 0.5 mg IVPUSH ONETIME ONE Stop: 11/02/17 15:36 Last Admin: 11/02/17 16:25 Dose: Not Given Hydromorphone HCl (Dilaudid) Confirm Administered Dose 0.5 mg .ROUTE .STK-MED ONE Stop: 11/02/17 15:28 Last Admin: 11/02/17 15:35 Dose: 0.5 mg Lactated Ringer's (Ringers, Lactated) 1,000 mls @ 125 mls/hr IV ASDIRECTED MARIELLE Cefazolin Sodium/Dextrose 2 gm (/ Premix) 50 mls @ 100 mls/hr IV Q8H [facility] Stop: 11/03/17 12:29 Last Admin: 11/03/17 11:55 Dose: 100 mls/hr Lactated Ringer's (Ringers, Lactated) 1,000 mls @ 125 mls/hr IV ASDIRECTED [facility] Stop: 11/02/17 18:00 Last Admin: 11/02/17 11:00 Dose: 125 mls/hr Lactated Ringer's (Ringers, Lactated) Confirm Administered Dose 1,000 mls @ as directed .ROUTE .STK-MED ONE Stop: 11/02/17 11:39 Lidocaine HCl (Xylocaine-Mpf 1%) Confirm Administered Dose 6 mls @ as directed .ROUTE .STK-MED ONE Stop: 11/02/17 11:40 Lactated Ringer's (Ringers, Lactated) Confirm Administered Dose 1,000 mls @ as directed .ROUTE .STK-MED ONE Stop: 11/02/17 13:03 Lactated Ringer's (Ringers, Lactated) Confirm Administered Dose 1,000 mls @ as directed .ROUTE .STK-MED ONE Stop: 11/02/17 13:03 Cefazolin Sodium/Dextrose 1 gm (/ Premix) 50 mls @ 100 mls/hr IV Q8H [facility] Stop: 11/03/17 12:29 Last Admin: 11/03/17 11:55 Dose: 100 mls/hr Iodine (Iodine 2% Mild Tincture) Confirm Administered Dose 30 ml .ROUTE .STK- MED ONE Stop: 11/02/17 11:03 Last Admin: 11/02/17 13:22 Dose: 18 ml Ketamine HCl (Ketalar) Confirm Administered Dose 500 mg .ROUTE .STK-MED ONE Stop: 11/02/17 12:29 Ketorolac Tromethamine (Toradol) Confirm Administered Dose 30 mg .ROUTE .STK- MED ONE Stop: 11/02/17 13:01 Lidocaine/Sodium Bicarbonate (Buffered Lidocaine 1% In Ns 8.4%) 0.25 ml IV ONETIME PRN PRN Reason: Prior to IV Start Stop: 11/02/17 18:00 Last Admin: 11/02/17 10:59 Dose: 0.25 ml Midazolam HCl (Versed 1 Mg/Ml) Confirm Administered Dose 2 mg .ROUTE .STK-MED ONE Stop: 11/02/17 11:40 Midazolam HCl (Versed 1 Mg/Ml) Confirm Administered Dose 2 mg .ROUTE .STK-MED ONE Stop: 11/02/17 11:49 Morphine Sulfate (Duramorph Pf) Confirm Administered Dose 1 mg .ROUTE .STK-MED ONE Stop: 11/02/17 09:40 Morphine Sulfate (Duramorph Pf) Confirm Administered Dose 1 mg .ROUTE .STK-MED ONE Stop: 11/02/17 10:13 Ondansetron HCl (Zofran) Confirm Administered Dose 4 mg .ROUTE .STK-MED ONE Stop: 11/02/17 13:03 Ondansetron HCl (Zofran) 4 mg IVPUSH ONETIME PRN PRN Reason: Nausea/Vomiting Stop: 11/02/17 15:00 Propofol (Diprivan 20 Ml) Confirm Administered Dose 600 mg .ROUTE .STK-MED ONE Stop: 11/02/17 11:39 Propofol (Diprivan 20 Ml) Confirm Administered Dose 600 mg .ROUTE .STK-MED ONE Stop: 11/02/17 13:19 Sodium Chloride (Saline Flush) 10 ml FLUSH ASDIRECTED PRN PRN Reason: Keep Vein Open Tranexamic Acid (Cyklokapron) Confirm Administered Dose 1,000 mg .ROUTE .STK- MED ONE Stop: 11/02/17 11:03 Last Admin: 11/02/17 13:37 Dose: 1,000 mg Vancomycin HCl (Vancomycin) Confirm Administered Dose 1 gm .ROUTE .STK-MED ONE Stop: 11/02/17 11:03 Last Admin: 11/02/17 13:36 Dose: 1 gm - Exam Wound/Incisions: Dressing Dry and Intact General: Alert, Cooperative, No Acute Distress Lungs: Normal Respiratory Effort Extremities: Other (NVS intact. Sonny's negative. ) - Problem List Review Problem List Initiated/Reviewed/Updated: Yes - My Orders Last 24 Hours: Active Orders 24 hr Category Date Time Status Ready for Discharge [RC] PER UNIT ROUTINE Care 11/03/17 12:48 Active Regular Diet [DIET] Diet 11/02/17 Dinner Active Docusate Sodium [Colace] Med 11/02/17 21:00 Active 100 mg PO BID Famotidine [Pepcid] Med 11/02/17 21:00 Active 20 mg PO Q12H Rivaroxaban [Xarelto] Med 11/03/17 09:00 Active 10 mg PO DAILY Medication Orders Bisacodyl (Dulcolax) 5 mg PO DAILY PRN PRN Reason: Constipation Cyclobenzaprine HCl (Flexeril) 10 mg PO TID PRN PRN Reason: Spasms Last Admin: 11/03/17 15:59 Dose: 10 mg Admin: 11/03/17 06:30 Dose: 10 mg Admin: 11/02/17 22:13 Dose: 10 mg Diphenhydramine HCl (Benadryl) 25 mg IVPUSH Q4H PRN PRN Reason: Nausea Docusate Sodium (Colace) 100 mg PO BID [facility] Last Admin: 11/03/17 08:11 Dose: 100 mg Admin: 11/02/17 21:26 Dose: 100 mg Famotidine (Pepcid) 20 mg PO Q12H [facility] Last Admin: 11/03/17 08:11 Dose: 20 mg Admin: 11/02/17 21:26 Dose: 20 mg Ketorolac Tromethamine (Toradol) 15 mg IVPUSH Q6H PRN PRN Reason: Pain Last Admin: 11/03/17 10:03 Dose: 15 mg Admin: 11/03/17 04:30 Dose: 15 mg Magnesium Hydroxide (Milk Of Magnesia) 30 ml PO BID PRN PRN Reason: Constipation Morphine Sulfate (Morphine) 2 mg IVPUSH Q2H PRN PRN Reason: Breakthrough Pain Naloxone HCl (Narcan) 0.1 mg IVPUSH Q5M PRN PRN Reason: Oversedation Ondansetron HCl (Zofran) 4 mg IVPUSH Q6H PRN PRN Reason: Nausea/Vomiting Oxycodone/Acetaminophen (Percocet 325-5 Mg) 1 - 2 tab PO Q4H PRN PRN Reason: Pain Last Admin: 11/03/17 15:07 Dose: 2 tab Admin: 11/03/17 08:13 Dose: 2 tab Admin: 11/03/17 04:29 Dose: 2 tab Admin: 11/03/17 00:21 Dose: 2 tab Admin: 11/02/17 19:20 Dose: 2 tab Rivaroxaban (Xarelto) 10 mg PO DAILY MARIELLE Last Admin: 11/03/17 08:12 Dose: 10 mg Senna (Senna) 8.6 mg PO BID PRN PRN Reason: Constipation - Assessment Assessment (Free Text/Narrative):: POD#1 - right TKA - Plan Plan (Free Text/Narrative):: 1. The pt has met inpatient therapy goals. Discharge to home today. The pt will have the assistance of his . 2. Elevated WBC and UA and CXR negative. Further orders per Hospitalist service. 3. Xarelto, TEDs, frequent mobility. 4. Outpatient P.T. The pt's case was discussed with Dr. Last.
--- NOTE | 2017-11-06 15:48 | PCM.DCSUM1 ---
Discharge Summary - Hospital Course Brief History: Mat is a 52 yo male who underwent right TKA with Dr. Last on . The procedure was completed under spinal anesthesia. The pt tolerated the procedure well and was admitted to the Medical-Surgical Unit. Medical management was provided by the Hospitalist service. The pt's Hospital course was uneventful. The pt's Hgb on POD#1 was 13.0. On POD#1, Xarelto daily was initiated for VTE prophylaxis. SCDs and TEDs were also ordered. A Mepilex dressing was placed at the incision site at the time of surgery and remained clean and dry. The pt participated in P.T. and O.T. and progressed well. The pt was allowed to WBAT. On POD#1, the pt was deemed appropriate to discharge to home with his . - Discharge Data Discharge Date: 11/03/17 Discharge Disposition: Home, Self-Care 01 Condition: Good - Patient Summary/Data Consults: Consultations 11/02/17 06:44 Consult to Physician [CONS] Routine OT Evaluation and Treatment [CONS] Routine 11/02/17 06:48 PT Evaluation and Treatment [CONS] Routine - Patient Instructions Diet: Usual Diet as Tolerated Activity: Apply Ice, As Tolerated, Elevate Extremity, Full Weight Bearing Driving: Do Not Drive Showering/Bathing: May Shower Wound/Incision Care: Keep Operative Site/Wound Site Clean and Dry, Do NOT Change Dressing Notify Provider of: Fever, Increased Pain, Swelling and Redness, Drainage, Nausea and/or Vomiting Other/Special Instructions: Please get up and moving around every hour while awake. This helps to prevent blood clots. Please use your walker and have help as needed. Take the Xarelto blood thinner medication daily. This also helps to prevent blood clots. Do the exercises you were taught in the Hospital. Schedule for P.T. Use the pain medication as needed. The medication may cause drowsiness and constipation. Contact your primary care provider for instructions if you are constipated. You may use a stool softener like docusate sodium or Colace 100mg twice daily and/or a laxative like Miralax daily for constipation. Use the ice machine often. Elevate the limb to decrease swelling. Keep the Mepilex dressing in place until follow-up at the Clinic. Notify the Clinic if the dressing is saturated. Wear the [place] hose during the day and you may remove these at night. Eat a diet high in protein as this well help with healing. Schedule an appointment with your primary care provider for 'routine post-op care'. Call the Clinic with questions or concerns - [phone]. - Discharge Plan Prescriptions/Med Rec: Acetaminophen/oxyCODONE [Percocet 325-5 MG] 1 - 2 tab PO Q4H PRN #60 tablet PRN Reason: Pain Cyclobenzaprine [Flexeril] 10 mg PO TID PRN #40 tablet PRN Reason: Spasms Rivaroxaban [Xarelto] 10 mg PO DAILY #42 tablet Home Medications: Home Meds Omeprazole 20 mg PO BID 11/03/16 [History] traMADol HCl [Tramadol HCl] 50 mg PO Q12H PRN 10/30/17 [History] Acetaminophen/oxyCODONE [Percocet 325-5 MG] 1 - 2 tab PO Q4H PRN #60 tablet 11/08 [Rx] Cyclobenzaprine [Flexeril] 10 mg PO TID PRN #40 tablet 11/03/17 [Rx] Docusate Sodium [Colace] 100 mg PO BID cap 11/03/17 [Rx] Rivaroxaban [Xarelto] 10 mg PO DAILY #42 tablet 11/03/17 [Rx] Patient Handouts: Total Knee Replacement, Care After, [id number], Total Knee Replacement, [id number] Referrals: Natasha Allen PA-C [Physician Desktop Publishing Operator] - 11/10/17 1:30 pm (Please follow up with Natasha Allen on 11/10/17 at 1:30PM, and a second 11/18/17 at 1315.) - Patient Data Vitals - Most Recent: Last Vital Signs Temp 99.1 F 11/03/17 12:45 Pulse 66 11/03/17 12:45 Resp 16 11/03/17 16:00 BP 121/85 11/03/17 12:45 Pulse Ox 92 L 11/03/17 12:45 Weight - Most Recent: 328 lb 11.2 oz Med Orders - Current: Current Medications Discontinued Medications Bisacodyl (Dulcolax) 5 mg PO DAILY PRN PRN Reason: Constipation Bupivacaine HCl (Marcaine 0.25%) Confirm Administered Dose 30 ml .ROUTE .STK- MED ONE Stop: 11/02/17 11:04 Last Admin: 11/02/17 13:55 Dose: 30 ml Cefazolin Sodium (Ancef) Confirm Administered Dose 2 gm .ROUTE .STK-MED ONE Stop: 11/02/17 11:03 Cefazolin Sodium (Ancef) Confirm Administered Dose 2 gm .ROUTE .STK-MED ONE Stop: 11/02/17 11:39 Cefazolin Sodium (Ancef) Confirm Administered Dose 1 gm .ROUTE .STK-MED ONE Stop: 11/02/17 13:01 Last Admin: 11/02/17 13:25 Dose: 2 gm Cefazolin Sodium (Ancef) Confirm Administered Dose 2 gm .ROUTE .STK-MED ONE Stop: 11/02/17 13:50 Morphine Sulfate 8 mg/Epinephrine HCl 0.3 mg/Cefuroxime Sodium 750 mg/Ketorolac Tromethamine 30 mg/Sodium Chloride 27.9 ml 0 mg .XX ONETIME ONE Stop: 11/02/17 06:45 Last Admin: 11/03/17 15:40 Dose: Not Given Cyclobenzaprine HCl (Flexeril) 10 mg PO TID PRN PRN Reason: Spasms Last Admin: 11/03/17 15:59 Dose: 10 mg Dexamethasone (Dexamethasone) Confirm Administered Dose 20 mg .ROUTE .STK-MED ONE Stop: 11/02/17 13:04 Diphenhydramine HCl (Benadryl) 25 mg IVPUSH Q4H PRN PRN Reason: Nausea Diphenhydramine HCl (Benadryl) 25 mg IVPUSH Q6H PRN PRN Reason: Pruritis Stop: 11/02/17 15:00 Docusate Sodium (Colace) 100 mg PO BID [facility] Last Admin: 11/03/17 08:11 Dose: 100 mg Ephedrine Sulfate (Ephedrine Sulfate) 5 mg IVPUSH ASDIRECTED PRN PRN Reason: Hypotension Stop: 11/02/17 15:00 Famotidine (Pepcid) 20 mg PO Q12H [facility] Last Admin: 11/03/17 08:11 Dose: 20 mg Fentanyl (Sublimaze) Confirm Administered Dose 250 mcg .ROUTE .STK-MED ONE Stop: 11/02/17 11:40 Hydromorphone HCl (Dilaudid) 0.5 mg IVPUSH ONETIME ONE Stop: 11/02/17 15:36 Last Admin: 11/02/17 16:25 Dose: Not Given Hydromorphone HCl (Dilaudid) Confirm Administered Dose 0.5 mg .ROUTE .STK-MED ONE Stop: 11/02/17 15:28 Last Admin: 11/02/17 15:35 Dose: 0.5 mg Lactated Ringer's (Ringers, Lactated) 1,000 mls @ 125 mls/hr IV ASDIRECTED [facility] Cefazolin Sodium/Dextrose 2 gm (/ Premix) 50 mls @ 100 mls/hr IV Q8H [facility] Stop: 11/03/17 12:29 Last Admin: 11/03/17 11:55 Dose: 100 mls/hr Lactated Ringer's (Ringers, Lactated) 1,000 mls @ 125 mls/hr IV ASDIRECTED [facility] Stop: 11/02/17 18:00 Last Admin: 11/02/17 11:00 Dose: 125 mls/hr Lactated Ringer's (Ringers, Lactated) Confirm Administered Dose 1,000 mls @ as directed .ROUTE .STK-MED ONE Stop: 11/02/17 11:39 Lidocaine HCl (Xylocaine-Mpf 1%) Confirm Administered Dose 6 mls @ as directed .ROUTE .STK-MED ONE Stop: 11/02/17 11:40 Lactated Ringer's (Ringers, Lactated) Confirm Administered Dose 1,000 mls @ as directed .ROUTE .STK-MED ONE Stop: 11/02/17 13:03 Lactated Ringer's (Ringers, Lactated) Confirm Administered Dose 1,000 mls @ as directed .ROUTE .STK-MED ONE Stop: 11/02/17 13:03 Cefazolin Sodium/Dextrose 1 gm (/ Premix) 50 mls @ 100 mls/hr IV Q8H [facility] Stop: 11/03/17 12:29 Last Admin: 11/03/17 11:55 Dose: 100 mls/hr Iodine (Iodine 2% Mild Tincture) Confirm Administered Dose 30 ml .ROUTE .STK- MED ONE Stop: 11/02/17 11:03 Last Admin: 11/02/17 13:22 Dose: 18 ml Ketamine HCl (Ketalar) Confirm Administered Dose 500 mg .ROUTE .STK-MED ONE Stop: 11/02/17 12:29 Ketorolac Tromethamine (Toradol) 15 mg IVPUSH Q6H PRN PRN Reason: Pain Last Admin: 11/03/17 10:03 Dose: 15 mg Ketorolac Tromethamine (Toradol) Confirm Administered Dose 30 mg .ROUTE .STK- MED ONE Stop: 11/02/17 13:01 Lidocaine/Sodium Bicarbonate (Buffered Lidocaine 1% In Ns 8.4%) 0.25 ml IV ONETIME PRN PRN Reason: Prior to IV Start Stop: 11/02/17 18:00 Last Admin: 11/02/17 10:59 Dose: 0.25 ml Magnesium Hydroxide (Milk Of Magnesia) 30 ml PO BID PRN PRN Reason: Constipation Midazolam HCl (Versed 1 Mg/Ml) Confirm Administered Dose 2 mg .ROUTE .STK-MED ONE Stop: 11/02/17 11:40 Midazolam HCl (Versed 1 Mg/Ml) Confirm Administered Dose 2 mg .ROUTE .STK-MED ONE Stop: 11/02/17 11:49 Morphine Sulfate (Morphine) 2 mg IVPUSH Q2H PRN PRN Reason: Breakthrough Pain Morphine Sulfate (Duramorph Pf) Confirm Administered Dose 1 mg .ROUTE .STK-MED ONE Stop: 11/02/17 09:40 Morphine Sulfate (Duramorph Pf) Confirm Administered Dose 1 mg .ROUTE .STK-MED ONE Stop: 11/02/17 10:13 Naloxone HCl (Narcan) 0.1 mg IVPUSH Q5M PRN PRN Reason: Oversedation Ondansetron HCl (Zofran) 4 mg IVPUSH Q6H PRN PRN Reason: Nausea/Vomiting Ondansetron HCl (Zofran) Confirm Administered Dose 4 mg .ROUTE .STK-MED ONE Stop: 11/02/17 13:03 Ondansetron HCl (Zofran) 4 mg IVPUSH ONETIME PRN PRN Reason: Nausea/Vomiting Stop: 11/02/17 15:00 Oxycodone/Acetaminophen (Percocet 325-5 Mg) 1 - 2 tab PO Q4H PRN PRN Reason: Pain Last Admin: 11/03/17 15:07 Dose: 2 tab Propofol (Diprivan 20 Ml) Confirm Administered Dose 600 mg .ROUTE .STK-MED ONE Stop: 11/02/17 11:39 Propofol (Diprivan 20 Ml) Confirm Administered Dose 600 mg .ROUTE .STK-MED ONE Stop: 11/02/17 13:19 Rivaroxaban (Xarelto) 10 mg PO DAILY [facility] Last Admin: 11/03/17 08:12 Dose: 10 mg Senna (Senna) 8.6 mg PO BID PRN PRN Reason: Constipation Sodium Chloride (Saline Flush) 10 ml FLUSH ASDIRECTED PRN PRN Reason: Keep Vein Open Tranexamic Acid (Cyklokapron) Confirm Administered Dose 1,000 mg .ROUTE .STK- MED ONE Stop: 11/02/17 11:03 Last Admin: 11/02/17 13:37 Dose: 1,000 mg Vancomycin HCl (Vancomycin) Confirm Administered Dose 1 gm .ROUTE .STK-MED ONE Stop: 11/02/17 11:03 Last Admin: 11/02/17 13:36 Dose: 1 gm *Q Meaningful Use (DIS) - VTE *Q VTE Criteria *Q: - Stroke *Q Stroke Criteria *Q: - AMI *Q AMI Criteria *Q:
--- NOTE | 2017-11-09 07:39 | PCM.OPNOTE ---
- General Post-Op/Procedure Note Date of Surgery/Procedure: 11/02/17 Operative Procedure(s): right total knee arthroplasty Pre Op Diagnosis: right knee osteoarthrosis Post-Op Diagnosis: Same Anesthesia Technique: Local, MAC, Spinal Primary Surgeon: Gal Last Anesthesia Provider: Mandy Mcdonnell Waiter/Waitress Club: Natasha Allen Waiter/Waitress Club: Shawna Cruz EBL in mLs: 1,000 Complications: None Condition: Good
--- NOTE | 2017-11-09 15:22 | OR ---
DATE OF OPERATION: 11/02/2017 SURGEON: Gal Last MD OPERATION PERFORMED: Right total knee arthroplasty. PREOPERATIVE DIAGNOSIS: Right knee osteoarthrosis. POSTOPERATIVE DIAGNOSIS: Right knee osteoarthrosis. ANESTHESIA: Local MAC with spinal. ANESTHESIA PROVIDER: Mandy Vee. ASSISTANTS: 1. Natasha Allen PA-C. 2. Shawna Cruz LPN. ESTIMATED BLOOD LOSS: 1000 mL COMPLICATIONS: None. CONDITION: Stable. IMPLANTS: DESCRIPTION OF PROCEDURE: The patient was identified in the preop holding area. Proper site was marked and identified by the surgeon. The patient was taken back to the operating theater. After adequate anesthesia, the patient's right lower extremity had a nonsterile tourniquet applied and it was then sterilely prepped and draped in the usual sterile fashion. OR timeout was performed. The patient received 2 g IV Ancef. At this time, right lower extremity was exsanguinated. Tourniquet was insufflated to 300 mmHg. Standard medial parapatellar incision was made. Medial parapatellar arthrotomy was created. Deep fibers of the MCL were raised and anterior fat pad was resected. At this time, attention was turned to the patella. Patella measured 26, it was resected to a 16 patella. Drill holes were then drilled and found to be in adequate position. The drill was then drilled in the distal femur and the intramedullary distal femoral cutting guide was then placed. 8 mm was resected off the distal femur and was found to be an adequate resection. Sizing guide was placed. It was found to be a size 8 mm resected of the distal femur that was shown on the implant record at the beginning of this dictation. The drill holes were drilled for the epicondylar axis using Whitesides line and epicondyles as reference. At this time, the 4-in - 1 cutting block was placed. An anterior posterior and anterior and posterior chamfer cuts were then completed. The correct size box cut was then placed and the box cut was completed and found to be an adequate resection. Attention was turned to the tibia. The posterior medial lateral retractors were placed. The extramedullary tibial guide was placed. It was placed in the old footprint of the ACL. It was aligned with the center of the ankle and 0 degrees of slope, 9 mm was then resected off the unaffected lateral side. There was found to be an acceptable reduction. At this time, posterior osteophytes were removed along with medial and lateral meniscus. A trial implant was placed with a correct sized tibia that was mentioned at the beginning of the dictation. A polyethylene was then placed. The patient's knee was brought through range of motion. The patella was tracking centrally and was stable to varus and valgus stress. Alignment was found to be roughly at 0 degrees. The tibia was stamped and drilled in proper rotation. The universal tibial base plate was impacted into place. Next, the femur was impacted into place and the polyethylene was placed. The patient's knee was brought into full extension. The patella was then press-fit into place at this time. Tourniquet was deflated. One liter dilute Betadine solution was irrigated through the knee along with 3 L of pulse lavage irrigation with Ancef. Periarticular injection was then completed. The patient's knee was brought through a range of motion. Knee was found to be stable to varus valgus stress, the patella was tracking centrally with full range of motion. At this time, a #2 barbed suture was used for closure of the medial parapatellar arthrotomy. Topical tranexamic acid was placed. 2-0 Vicryl was used subcutaneously, a running 3-0 Monocryl was used subcuticularly. The patient tolerated the procedure well and was sent to the PACU in stable condition. DORINDA /[id number] HOMERO
== END 2017-11-03 16:15 | disposition home or self-care (01) | DRG 302 ==
LOC: JD.MS 10:09
PROVIDERS: ADMIT Orthopaedic Surgery; ATTEND Orthopaedic Surgery
PROC: 0SRC0J9 Replacement of Right Knee Joint with Synthetic Substitute, Cemented, Open Approach (ICD-10-PCS; principal; 2017-11-02)
DX: M17.11 Unilateral primary osteoarthritis, right knee (principal); Z96.652 Presence of left artificial knee joint; F41.9 Anxiety disorder, unspecified; F32.9 Major depressive disorder, single episode, unspecified; K21.9 Gastro-esophageal reflux disease without esophagitis; E66.01 Morbid (severe) obesity due to excess calories; Z68.41 Body mass index [BMI] 40.0-44.9, adult; Z79.899 Other long term (current) drug therapy; Z87.891 Personal history of nicotine dependence; H54.7 Unspecified visual loss; K44.9 Diaphragmatic hernia without obstruction or gangrene
CPT/HCPCS: 01402; 36415; 71020; 71020-26; 73560-26-RT; 73560-RT; 80053; 81001; 83036; 85027; 85048; 87641; 94762; 97110-GP; 97116-GP; 97162-GP; 97165-GO; 97535-GO; A9270-GY; C1776; J0171; J0690; J0697; J1100; J1170; J1885; J2250; J2270; J2274; J2405; J2704; J3010; J3370; J3490; J7120

== ENCOUNTER 2020-12-03 06:30 | Emergency (ER) | payer BC, OTHER ==
[2020-12-03 06:41] VITALS: BP 142/80; PULSE 60
[2020-12-03] MEDS ORDERED: LORazepam 2 MG/ML SDV IV ONE (07:23)
[2020-12-03] MEDS ORDERED: Metoclopramide 10 MG/2 ML SDV IVPUSH ONE (07:23)
--- NOTE | 2020-12-03 07:23 | EDM.PDOC ---
ED HPI GENERAL MEDICAL PROBLEM - General Chief Complaint: Neurological Problem Stated Complaint: DIZZY, NAUSEA Time Seen by Provider: 12/03/20 07:13 Source of Information: Reports: Patient History Limitations: Reports: No Limitations - History of Present Illness INITIAL COMMENTS - FREE TEXT/NARRATIVE: 55-year-old male presents to the ED with acute onset of vertigo symptoms deve loping around 0 to 30 hours this morning when he got up to void from sleep. He states he was listing and walking like a drunk. He did make it to the bathroom without any falls. However when he got back to bed and try to lie down flat the symptoms became much worse. Feels that his eyes are skipping and has marked difficulty focusing. Denies any diplopia. Associated nausea without any vomiting. No recent falls or closed head injuries. He has never had vertigo symptoms in the past. Denies any acute sinus infection he states he has a chronic sinus congestion. He indicates that his sense of smell seems to be much stronger than normal today such as the air freshener in the bathroom was super strong smelling this morning. Symptoms go away if he lies will still. No other neurological deficits. He did appreciate riding in the vehicle on the way here with his driving a acceleration deceleration did cause symptoms to develop as well. Onset: Today, Sudden Onset Date: 12/03/20 Onset Time: 02:30 Duration: Hour(s):, Constant Location: Reports: Head (Vertigo.) Quality: Reports: Other (Sense of difficulty focusing his vision with inability to walk normally feeling like he is spinning to some degree versus the world around him.) Severity: Severe Improves with: Reports: Rest (Olding very still makes the symptoms go away.) Worsens with: Reports: Movement (Secondary movement to the right side) Context: Reports: Other (Fontan's occurrence during sleep tonight.). Denies: Activity, Exercise, Lifting, Sick Contact, Trauma Associated Symptoms: Reports: Loss of Appetite, Nausea/Vomiting. 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.) - Related Data Allergies Allergy/AdvReac Type Severity Reaction Status Date / Time No Known Allergies Allergy Verified 12/11/17 16:31 Home Meds: Home Meds Omeprazole 20 mg PO BID 11/03/16 [History] traMADol HCl [Tramadol HCl] 50 mg PO Q12H PRN 10/30/17 [History] Acetaminophen/oxyCODONE [Percocet 325-5 MG] 1 - 2 tab PO Q4H PRN #60 tablet 11/03/17 [Rx] Cyclobenzaprine [Flexeril] 10 mg PO TID PRN #40 tablet 11/03/17 [Rx] Docusate Sodium [Colace] 100 mg PO BID cap 11/03/17 [Rx] Rivaroxaban [Xarelto] 10 mg PO DAILY #42 tablet 11/03/17 [Rx] Meclizine [Antivert] 25 mg PO Q8H #15 tab 12/03/20 [Rx] Past Medical History HEENT History: Reports: Impaired Vision Other HEENT History: wears corective lenses, pharyngitis Cardiovascular History: Reports: None Respiratory History: Reports: None Gastrointestinal History: Reports: GERD, Hiatal Hernia Genitourinary History: Reports: None 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 Musculoskeletal History: Reports: Arthritis, Neck Pain, Chronic (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.), Other (See Below) Other Musculoskeletal History: bilateral knee pain, left SI joint pain,sacroilitis Neurological History: Reports: Other (See Below) Other Neuro History: tremor Psychiatric History: Reports: Depression, Other (See Below) Other Psychiatric History: anxiety attack Endocrine/Metabolic History: Reports: Obesity/BMI 30+ Hematologic History: Reports: None Immunologic History: Reports: None Oncologic (Cancer) History: Reports: None Dermatologic History: Reports: Other (See Below) 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, removed 1984 - Past Surgical History Head Surgeries/Procedures: Reports: None HEENT Surgical History: Reports: None Cardiovascular Surgical History: Reports: None Respiratory Surgical History: Reports: None GI Surgical History: Reports: None Male Surgical History: Reports: None Neurological Surgical History: Reports: None Musculoskeletal Surgical History: Reports: Arthroscopic Knee Other Musculoskeletal Surgeries/Procedures:: left knee replacement 12/08/16 Oncologic Surgical History: Reports: None Dermatological Surgical History: Reports: None Social & Family History - Family History Family Medical History: No Pertinent Family History - Tobacco Use Tobacco Use Status *Q: Current Every Day Tobacco User Years of Tobacco use: 1 Packs/Tins Daily: 0.1 - Caffeine Use Caffeine Use: Reports: Coffee - Recreational Drug Use Recreational Drug Use: No ED ROS GENERAL - Review of Systems Review Of Systems: See Below Constitutional: Reports: Fatigue, Decreased Appetite (Not sleeping most of the night.). Denies: Fever, Chills, Malaise, Weakness, Weight Loss HEENT: Reports: Sinus Problem (Nasal drip usually makes him cough in the mornings.) Respiratory: Reports: Shortness of Breath, Cough, Sputum. Denies: Wheezing, Pleuritic Chest Pain, Hemoptysis (Sometimes first thing in the morning.) Cardiovascular: Denies: Chest Pain, Blood Pressure Problem, Claudication, Dyspnea on Exertion, Edema, Lightheadedness, Orthopnea, Palpitations Endocrine: Reports: Fatigue GI/Abdominal: Reports: Other (History of GERD and known hiatal hernia. Frequent reflux with concern for aspiration pneumonitis.) : Reports: No Symptoms Musculoskeletal: Reports: Neck Pain (Chronic cervical neck pain for which she takes meloxicam daily.), Joint Pain (Knees hips low back at times) Skin: Reports: No Symptoms Neurological: Reports: Difficulty Walking (Vertigo symptoms walks like a drunk.), Gait Disturbance. Denies: Confusion, Dizziness, Headache, Paresthesia, Pre-Existing Deficit, Seizure, Syncope, Tremors, Trouble Speaking, Weakness, Change in Speech, Other Psychiatric: Reports: Anxiety (Held anxiety.) Hematologic/Lymphatic: Reports: No Symptoms Immunologic: Reports: No Symptoms ED EXAM, DIZZINESS - Physical Exam Exam: See Below Exam Limited By: No Limitations General Appearance: Alert, WD/WN, No Apparent Distress, Other (Patient recognizes symptom complex is much improved if he does not move at all. Prefers to lie at about 30 degrees angulation) Eye Exam: Bilateral Eye: Normal Inspection, Nystagmus (No sustained nystagmus.), PERRL Nystagmus: worsens with head to R, reproducible, reversible Ears: Normal External Exam, Normal TMs Nose: Normal Inspection, Normal Mucosa, No Blood. No: Nasal Tenderness, Nasal Drainage, Clear Rhinorrhea Throat/Mouth: Normal Inspection, Normal Oropharynx, Other (Is moderately dry) Vertigo: worsens with head to R, reproducible, reversible Neck: Limited Range of Motion. No: Full Range of Motion (Crepitus on lateral rotation.), Carotid Bruit, Lymphadenopathy (L), Lymphadenopathy (R) Respiratory/Chest: No Respiratory Distress, Lungs Clear, Normal Breath Sounds, No Accessory Muscle Use, Chest Non-Tender Cardiovascular: Normal Peripheral Pulses, No Edema, No Gallop, No Murmur, No Rub, Tachycardia (Resting tachycardia of 126/min). No: Regular Rate, Rhythm GI/Abdominal: Normal Bowel Sounds, Soft, Non-Tender, No Organomegaly, No Mass, Pelvis Stable Neurological: Alert, Normal Mood/Affect, Normal Dorsiflexion, CN II-XII Intact, Normal Plantar Flexion, Normal Reflexes, No Motor/Sensory Deficits, Oriented x 3, Other (No pronator drift. Normal [id number] assessment no weakness in the upper extremities with normal motor power and tone.). No: Normal Gait DTR: 1+: Achilles (R), Achilles (L), 2+: Bicep (R), Bicep (L), Patella (R), Patella (L) Back Exam: Normal Inspection, Full Range of Motion. No: CVA Tenderness (L), CVA Tenderness (R) Extremities: Normal Inspection, Normal Range of Motion, Non-Tender, No Pedal Edema Psychiatric: Normal Affect, Normal Mood Skin Exam: Warm, Dry, Intact, Normal Color, No Rash Course - Vital Signs Last Recorded V/S: Last Vital Signs Temp 36.1 C 12/03/20 06:39 Pulse 60 12/03/20 06:39 Resp 16 12/03/20 06:39 BP 142/80 H 12/03/20 06:39 Pulse Ox 99 12/03/20 06:39 - Orders/Labs/Meds Orders: Active Orders 24 hr Category Date Time Status EKG Documentation Completion [RC] STAT Care 12/03/20 07:39 Active PRO B-TYPE NATRIUR PEPT,BNPPRO [CHEM] Stat Lab 12/03/20 08:39 Received Dextrose 5%-0.9% NaCl [Dextrose 5%-Normal Saline] 1,000 Med 12/03/20 07:30 Active ml IV ASDIRECTED Medication Orders Dextrose/Sodium Chloride (Dextrose 5%-Normal Saline) 1,000 mls @ 100 mls/hr IV ASDIRECTED MARIELLE Last Admin: 12/03/20 07:37 Dose: 100 mls/hr Documented by: MESHA Labs: Laboratory Tests 12/03/20 12/03/20 12/03/20 Range/Units 08:33 08:39 08:39 WBC 9.36 H (4.23-9.07) K/mm3 RBC 5.61 (4.63-6.08) M/mm3 Hgb 15.7 (13.7-17.5) gm/dl Hct 46.5 (40.1-51.0) % MCV 82.9 (79.0-92.2) fl MCH 28.0 (25.7-32.2) pg MCHC 33.8 (32.2-35.5) g/dl RDW Std Deviation 41.4 (35.1-43.9) fL Plt Count 253 (163-337) K/mm3 MPV 11.0 (9.4-12.3) fl Neut % (Auto) 80.8 H (34.0-67.9) % Lymph % (Auto) 9.5 L (21.8-53.1) % [place] % (Auto) 7.5 (5.3-12.2) % Eos % (Auto) 1.4 (0.8-7.0) Baso % (Auto) 0.3 (0.1-1.2) % Neut # (Auto) 7.56 H (1.78-5.38) K/mm3 Lymph # (Auto) 0.89 L (1.32-3.57) K/mm3 [place] # (Auto) 0.70 (0.30-0.82) K/mm3 Eos # (Auto) 0.13 (0.04-0.54) K/mm3 Baso # (Auto) 0.03 (0.01-0.08) K/mm3 Manual Slide Review Normal smear Sodium 138 (136-145) mEq/L Potassium 4.5 (3.5-5.1) mEq/L Chloride 103 (98-107) mEq/L Carbon Dioxide 23 (21-32) mEq/L Anion Gap 16.5 H (5-15) BUN 18 (7-18) mg/dL Creatinine 1.0 (0.7-1.3) mg/dL Est Cr Clr Drug Dosing TNP Estimated GFR (MDRD) > 60 (>60) mL/min BUN/Creatinine Ratio 18.0 (14-18) Glucose 125 H (74-106) mg/dL Calcium 9.0 (8.5-10.1) mg/dL Magnesium 2.2 (1.8-2.4) mg/dl Total Bilirubin 0.5 (0.2-1.0) mg/dL AST 27 (15-37) U/L ALT 52 (16-63) U/L Alkaline Phosphatase 84 (46-116) U/L Troponin I 0.018 (0.00-0.056) ng/mL C-Reactive Protein 0.8 (<1.0) mg/dL Total Protein 7.8 (6.4-8.2) g/dl Albumin 3.7 (3.4-5.0) g/dl Globulin 4.1 gm/dL Albumin/Globulin Ratio 0.9 L (1-2) Urine Color Yellow (Yellow) Urine Appearance Clear (Clear) Urine pH 8.5 H (5.0-8.0) Ur Specific [place] 1.020 (1.005-1.030) Urine Protein Negative (Negative) Urine Glucose (UA) Negative (Negative) Urine Ketones Negative (Negative) Urine Occult Blood Negative (Negative) Urine Nitrite Negative (Negative) Urine Bilirubin Negative (Negative) Urine Urobilinogen 0.2 (0.2-1.0) Ur Leukocyte Esterase Negative (Negative) Urine RBC 0-5 (0-5) /hpf Urine WBC 0-5 (0-5) /hpf Ur Squamous Epith Cells 0-5 (0-5) /hpf Urine Bacteria Few (FEW) /hpf Urine Mucus Few (FEW) /hpf Meds: Medications Generic Name Dose Route Start Last Admin Trade Name Aurelai PRN Reason Stop Dose Admin Dextrose/Sodium Chloride 1,000 mls @ 100 mls/hr 12/03/20 07:30 12/03/20 07:37 Dextrose 5%-Normal Saline IV 100 mls/hr ASDIRECTED MARIELLE Administration Discontinued Medications Generic Name Dose Route Start Last Admin Trade Name Aurelia PRN Reason Stop Dose Admin Diphenhydramine HCl 12.5 mg 12/03/20 07:48 12/03/20 08:05 Benadryl IVPUSH 12/03/20 07:49 12.5 mg ONETIME ONE Administration Lorazepam 0.5 mg 12/03/20 07:23 12/03/20 07:42 Ativan IV 12/03/20 07:24 0.5 mg ONETIME ONE Administration Metoclopramide HCl 10 mg 12/03/20 07:23 12/03/20 07:37 Reglan IVPUSH 12/03/20 07:24 10 mg ONETIME ONE Administration - Radiology Interpretation Free Text/Narrative:: 55-year-old male presents to the ED with acute onset of vertigo symptoms with perhaps his world spinning when he moves versus the world around him. Strong sense of visual problems with inability to focus vision. Walking offkilter bumping into the milligan at home since 0 to 30 hours this morning when he got up to void. He has no history of vertigo symptoms. No recent falls or closed head injuries. Neuro exam is otherwise normal and symptoms go away if he lies well still. Nausea but no vomiting has occurred. ENT exam is essentially normal. Plan IV D5 normal saline at 500 mils per hour. He will receive Reglan 10 mg IV with Ativan 0.5 mg IV and Benadryl 12.5 mg IV. - Re-Assessments/Exams Free Text/Narrative Re-Assessment/Exam: 12/03/20 08:32 Portable chest x-ray done portably is essentially within normal limits. No cardiomegaly. There is perhaps a very mild diffuse vascular congestion pattern which may be due to portable technique. 12/03/20 09:17 White count is 9.36 with a left shift of 80.8% neutrophils. Hemoglobin is 15.7 with hematocrit of 46.5 platelet count 253,000. Smear is considered otherwise normal with no bands reported. Urinalysis is clear with a pH of 8.5. Leukocyte esterase is negative with no signs of infection 12/03/20 10:08 Chemistry is now back showing a sodium 138 and a potassium of 4.5 chloride 103 with a bicarb of 23. Anion gap is elevated slightly at 116.5. BUN is 18 with a creatinine of 1.0 and a GFR greater than 60. Glucose is 125. Calcium is 9.0. Magnesium 2.2. Liver function normal. Troponin I was less than 0.018. C-reactive protein 0.8. Total protein 7.8 with an albumin fraction of 3.7. I disconnected the patient his IV and he was able to walk to the bathroom across the will feeling still slightly dizzy and lightheaded but not near as bad as when he came into the hospital. Labs do not show any significant electrolyte abnormalities. Patient will be discharged to home on meclizine 25 mg every 8 hours for the next 5 to 5 days. Follow-up with personal care physician if not markedly improved in 5 days time. 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 He must be vertigo free before he operates a motor vehicle. Departure - Departure Time of Disposition: 10:09 Disposition: Home, Self-Care 01 Condition: Fair Clinical Impression: Benign paroxysmal positional vertigo Qualifiers: Laterality: left Qualified Code(s): H81.12 - Benign paroxysmal vertigo, left ear - Discharge Information *PRESCRIPTION DRUG MONITORING PROGRAM REVIEWED*: Not Applicable *COPY OF PRESCRIPTION DRUG MONITORING REPORT IN PATIENT EDELMIRA: Not Applicable Prescriptions: Meclizine [Antivert] 25 mg PO Q8H #15 tab Referrals: Jaron Rodriguez PA-C [Primary Care Provider] - Forms: ED Department Discharge, ED Return to Work/School Form Additional Instructions: Evaluation in the emergency room this morning in regards to awakening with severe vertigo symptoms making it difficult to walk and focus your vision. No previous similar events have occurred. No evidence of acute labyrinthitis. This is called benign positional vertigo as symptoms go away when you your head still with no movement. You appreciate that looking and rolling to the right side will precipitate vertigo symptoms. Lab test did not reveal any electrolyte abnormalities to precipitate this event. You were treated with IV fluids while in the ED with medication Reglan 10 mg IV and Ativan 0.5 mg IV and Benadryl 12.5 mg IV. This will might likely make you sleepy and I would suggest home to rest, sleep. Suggest taking a medicine called meclizine or Antivert 25 mg tablet every 8 hours for the next 5 days to bring vertigo symptoms under control. The medicine does not fix vertigo. Rolling over in bed will shake things loose in t he middle ear cavity and that is what improved his vertigo symptoms and he can get better as quickly as it came on. You will not be able to drive a motor vehicle until the symptoms have completely cleared so would suggest no vertigo symptoms for 24 hours before returning to work. The next Antivert tablet would be due at 3 PM today and then 11:00 tonight. Turn to the hospital if any nausea vomiting occur or the vertigo worsens in spite of medication. Follow-up with personal care physician if still having vertigo symptoms in 6 days time Sepsis Event Note (ED) - Evaluation Sepsis Screening Result: No Definite Risk - Focused Exam Vital Signs: Vital Signs Temp Pulse Resp BP Pulse Ox 12/03/20 06:39 36.1 C 60 16 142/80 H 99 - My Orders Last 24 Hours: My Active Orders 12/03/20 07:30 Dextrose 5%-0.9% NaCl [Dextrose 5%-Normal Saline] 1,000 ml IV ASDIRECTED 12/03/20 07:39 EKG Documentation Completion [RC] STAT 12/03/20 08:39 PRO B-TYPE NATRIUR PEPT,BNPPRO [CHEM] Stat - Assessment/Plan Last 24 Hours: My Active Orders 12/03/20 07:30 Dextrose 5%-0.9% NaCl [Dextrose 5%-Normal Saline] 1,000 ml IV ASDIRECTED 12/03/20 07:39 EKG Documentation Completion [RC] STAT 12/03/20 08:39 PRO B-TYPE NATRIUR PEPT,BNPPRO [CHEM] Stat
[2020-12-03] MEDS ORDERED: Dextrose 5%-0.9% NaCl 1,000 ML IV SCH (07:30)
[2020-12-03] MEDS ORDERED: diphenhydrAMINE 50 MG/ML SDV IVPUSH ONE (07:48)
--- NOTE | 2020-12-03 08:43 | CR ---
Chest: Portable view of the chest was obtained. Comparison: Prior chest x-ray of 11/03/17. Heart size and mediastinum are normal. Lungs are clear with no acute parenchymal change. No acute osseous finding is appreciated. Impression: 1. Nothing acute is appreciated on portable chest x-ray. Diagnostic code #1
== END 2020-12-03 10:34 | disposition home or self-care (01) ==
LOC: JD.ED 06:30
DX: H81.12 Benign paroxysmal vertigo, left ear (principal); K21.9 Gastro-esophageal reflux disease without esophagitis; E66.9 Obesity, unspecified; Z79.01 Long term (current) use of anticoagulants; Z79.899 Other long term (current) drug therapy
CPT/HCPCS: 36415; 71045; 80053; 81001; 83735; 83880; 84484; 85025; 86140; 93005; 96374; 96375; 99284; J1200; J2060; J2765; J7042; 99283

== ENCOUNTER 2021-08-12 06:04 | Day surgery (SDC) | payer BC, OTHER ==
[~2021-08-12 06:04] MED LIST changes: +Acetaminophen 325 MG Tab PO SCH; -Bisacodyl 5 MG Tab PO PRN; -Lactated Ringers 1,000 ML IV SCH; -Lidocaine 1%/Sod Bicarbonate in NS 8.4% 1 ML Syringe IV PRN; -Magnesium Hydroxide 400 MG/5 ML Susp 30 ML Cup PO PRN; -Morphine 2 MG/ML Syringe IVPUSH PRN; -Morphine PF 1 MG/ML Amp ONE; -Naloxone 0.4 MG/ML SDV IVPUSH PRN; -Ondansetron 4 MG/2 ML SDV IVPUSH PRN; +Pregabalin 25 MG Cap PO SCH; -Sennosides 8.6 MG Tab PO PRN; -Sodium Chloride 0.9% 10 ML Syringe FLUSH PRN; -diphenhydrAMINE 50 MG/ML SDV IVPUSH PRN; +oxyCODONE ER 10 MG TAB.ER PO SCH
[2021-08-12] MEDS ORDERED: EPINEPHrine 1 MG/ML SDV ONE (06:25)
[2021-08-12] MEDS ORDERED: Ropivacaine 0.5% 5 MG/ML 30 ML SDV ONE (06:25)
[2021-08-12] MEDS ORDERED: Lidocaine 1% 4 ML ONE (06:26)
[2021-08-12] MEDS ORDERED: Propofol 200 MG/20 ML SDV ONE ×3 (06:27→08:50)
[2021-08-12] MEDS ORDERED: Midazolam 1 MG/ML 2 ML SDV ONE ×2 (06:27→07:44)
[2021-08-12] MEDS ORDERED: fentaNYL 100 MCG/2 ML SDV ONE (06:27)
[2021-08-12] MEDS ORDERED: ceFAZolin 1 GM Vial ONE (06:33)
--- NOTE | 2021-08-12 06:48 | PCM.PREANE ---
Preanesthetic Assessment - Procedure Proposed Procedure: right tibial component revision - Anesthesia/Transfusion/Family Hx Anesthesia History: Prior Anesthesia Without Reaction Other Type of Anesthesia Reaction Comment: Difficult Spinal, converted to gen eral with previous anesthetic. Family History of Anesthesia Reaction: No Transfusion History: No Prior Transfusion(s) Type of Transfusion Reactions: Reports: Unknown - Review of Systems General: No Symptoms Pulmonary: No Symptoms Cardiovascular: No Symptoms Gastrointestinal: No Symptoms Neurological: No Symptoms Other: Reports: Liver Problems (in past- none now), Sinus Problem (allergies), Anxiety - Physical Assessment NPO Status Date: 08/11/21 NPO Status Time: 22:00 Vital Signs: 66 94% 135/86 20 97.2 Height: 6 ft 1 in Weight: 157 kg ASA Class: 3 Mental Status: Alert & Oriented x3 Airway Class: Mallampati = 2 Dentition: Reports: Normal Dentition Thyro-Mental Finger Breadths: 3 Mouth Opening Finger Breadths: 3 ROM/Head Extension: Full Lungs: Clear to Auscultation, Normal Respiratory Effort Cardiovascular: Regular Rate, Regular Rhythm - Lab Values: Laboratory Last Values POC Glucose 128 mg/dL (70-99) H 08/12/21 06:30 - Allergies Allergies/Adverse Reactions: Allergies Allergy/AdvReac Type Severity Reaction Status Date / Time No Known Allergies Allergy Verified 08/10/21 12:18 - Blood Blood Available: No - Acknowledgements Anesthesia Type Planned: Spinal Pt an Appropriate Candidate for the Planned Anesthesia: Yes Alternatives and Risks of Anesthesia Discussed w Pt/Guardian: Yes Pt/Guardian Understands and Agrees with Anesthesia Plan: Yes PreAnesthesia Questionnaire HEENT History: Reports: Impaired Vision, Other (See Below) Other HEENT History: wears corective lenses, pharyngitis Cardiovascular History: Reports: None Respiratory History: Reports: None Gastrointestinal History: Reports: GERD, Hiatal Hernia Genitourinary History: Reports: None 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 Musculoskeletal History: Reports: Arthritis, Neck Pain, Chronic, Other (See Below) Other Musculoskeletal History: bilateral knee pain, left SI joint pain,sacroilitis Neurological History: Reports: Other (See Below) Other Neuro History: tremor, cervical radicular pain Psychiatric History: Reports: Anxiety, Depression, Other (See Below) Other Psychiatric History: anxiety attack Endocrine/Metabolic History: Reports: Diabetes, Type II (denies), Obesity/BMI 30+ Hematologic History: Reports: Other (See Below) Other Hematologic History: bone marrow edema, leukocytosis Immunologic History: Reports: None Oncologic (Cancer) History: Reports: None Dermatologic History: Reports: Other (See Below) 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, removed 1984 - Infectious Disease History Infectious Disease History: Reports: None - Past Surgical History Head Surgeries/Procedures: Reports: None HEENT Surgical History: Reports: None Cardiovascular Surgical History: Reports: None Respiratory Surgical History: Reports: None GI Surgical History: Reports: None Female Surgical History: Reports: None Male Surgical History: Reports: None Endocrine Surgical History: Reports: None Neurological Surgical History: Reports: None Musculoskeletal Surgical History: Reports: Knee Replacement Other Musculoskeletal Surgeries/Procedures:: left knee replacement 12/08/16 Oncologic Surgical History: Reports: None Dermatological Surgical History: Reports: None - SUBSTANCE USE Tobacco Use Status *Q: Current Some Day Tobacco User Tobacco Use Within Last Twelve Months: Cigars, Other (See Below) Other Tobacco Use Within Last Twelve Months: cigars rarely Second Hand Smoke Exposure: Yes Days Per Week of Alcohol Use: 1 Recreational Drug Use History: No - HOME MEDS Home Medications: Home Meds Omeprazole 20 mg PO BID 11/03/16 [History] Apixaban [Eliquis] 2.5 mg PO BID #84 tablet 08/09/21 [Rx] Cyclobenzaprine [Flexeril] 10 mg PO BID PRN #20 tab 08/09/21 [Rx] oxyCODONE 5 - 10 mg PO Q4H PRN #40 tab 08/09/21 [Rx] Meloxicam 15 mg PO DAILY PRN 08/10/21 [History] Orphenadrine [Norflex] 100 mg PO BEDTIME 08/10/21 [History] metFORMIN [Glucophage XR] 500 mg PO DAILY 08/10/21 [History] traMADol [Ultram] 50 mg PO BID PRN 08/10/21 [History] - CURRENT (IN HOUSE) MEDS Current Meds: Current Medications Acetaminophen (Acetaminophen 325 Mg Tab) 975 mg PO ONETIME MARIELLE Stop: 08/12/21 12:00 Morphine Sulfate 8 mg/Epinephrine HCl 0.3 mg/Cefuroxime Sodium 750 mg/Ketorolac Tromethamine 30 mg/Sodium Chloride 7.9 ml 0 mg .XX ASDIRECTED PRN PRN Reason: Pain Stop: 08/12/21 13:00 Cyclobenzaprine HCl (Cyclobenzaprine 10 Mg Tab) 10 mg PO ONETIME PRN PRN Reason: post op pain control Lactated Ringer's (Ringers, Lactated) 1,000 mls @ 125 mls/hr IV ASDIRECTED MARIELLE Stop: 08/12/21 23:00 Lidocaine/Sodium Bicarbonate (Lidocaine 1%/Sod Bicarbonate In Ns 8.4% 1 Ml Syringe) 0.25 ml IDERM ONETIME PRN PRN Reason: Prior to IV Start Stop: 08/12/21 18:00 Oxycodone HCl (Oxycodone 5 Mg Tab) 5 - 10 mg PO ONETIME PRN PRN Reason: post op pain control Oxycodone HCl (Oxycodone Er 10 Mg Tab.Er) 10 mg PO ONETIME MARIELLE Stop: 08/12/21 12:00 Pregabalin (Pregabalin 25 Mg Cap) 50 mg PO ONETIME MARIELLE Stop: 08/12/21 12:00 Sodium Chloride (Sodium Chloride 0.9% 10 Ml Syringe) 10 ml FLUSH ASDIRECTED PRN PRN Reason: Keep Vein Open Stop: 08/12/21 18:00 Discontinued Medications Cefazolin Sodium (Cefazolin 1 Gm Vial) Confirm Administered Dose 3 gm .ROUTE .STK-MED ONE Stop: 08/12/21 06:34 Epinephrine HCl (Epinephrine 1 Mg/Ml Sdv) Confirm Administered Dose 1 mg .ROUTE .STK-MED ONE Stop: 08/12/21 06:26 Fentanyl (Fentanyl 100 Mcg/2 Ml Sdv) Confirm Administered Dose 100 mcg .ROUTE .STK-MED ONE Stop: 08/12/21 06:28 Lidocaine HCl (Xylocaine-Mpf 1%) Confirm Administered Dose 4 mls @ as directed .ROUTE .STK-MED ONE Stop: 08/12/21 06:27 Midazolam HCl (Midazolam 1 Mg/Ml 2 Ml Sdv) Confirm Administered Dose 2 mg .ROUTE .STK-MED ONE Stop: 08/12/21 06:28 Propofol (Propofol 200 Mg/20 Ml Sdv) Confirm Administered Dose 600 mg .ROUTE .STK-MED ONE Stop: 08/12/21 06:28 Ropivacaine (Ropivacaine 0.5% 5 Mg/Ml 30 Ml Sdv) Confirm Administered Dose 30 ml .ROUTE .STK-MED ONE Stop: 08/12/21 06:26 Tranexamic Acid (Tranexamic Acid 1,000 Mg/10 Ml Amp) Confirm Administered Dose 1,000 mg .ROUTE .STK-MED ONE Stop: 08/12/21 06:14 Vancomycin HCl (Vancomycin 1 Gm Sdv) Confirm Administered Dose 1 gm .ROUTE .STK- MED ONE Stop: 08/12/21 06:14
[2021-08-12] MEDS ORDERED: Lactated Ringers 1,000 ML IV SCH (07:00)
[2021-08-12] MEDS ORDERED: Lidocaine 1%/Sod Bicarbonate in NS 8.4% 1 ML Syringe IDERM PRN (07:00)
[2021-08-12] MEDS ORDERED: Sodium Chloride 0.9% 10 ML Syringe FLUSH PRN (07:00)
[2021-08-12] MEDS ORDERED: Lidocaine 1% 2 ML ONE (07:38)
[2021-08-12] MEDS ORDERED: ePHEDrine 50 MG/ML SDV ONE (07:51)
[2021-08-12] MEDS ORDERED: oxyCODONE 5 MG Tab PO PRN (08:00)
[2021-08-12] MEDS ORDERED: Cyclobenzaprine 10 MG Tab PO PRN (08:00)
[2021-08-12] MEDS: Morphine 8 MG, EPINEPHrine 0.3 MG, Cefuroxime 750 MG, Ketorolac 30 MG, Sodium Chloride ... PRN ×10 (08:19→09:00)
[2021-08-12] MEDS: Vancomycin 1 GM SDV ONE ×2 (08:21→09:10)
[2021-08-12] MEDS ORDERED: Lactated Ringers 1,000 ML ONE ×2 (08:33→09:08)
[2021-08-12] MEDS ORDERED: fentaNYL 100 MCG/2 ML SDV IVPUSH PRN (09:06)
[2021-08-12] MEDS ORDERED: HYDROmorphone 0.5 MG/0.5 ML Syringe IVPUSH PRN (09:06)
[2021-08-12] MEDS ORDERED: Ondansetron 4 MG/2 ML SDV IVPUSH PRN (09:06)
[2021-08-12] MEDS ORDERED: Ketorolac 30 MG/ML SDV ONE (09:09)
[2021-08-12] MEDS ORDERED: Ondansetron 4 MG/2 ML SDV ONE (09:10)
--- NOTE | 2021-08-12 09:33 | PCM.POSTAN ---
POST ANESTHESIA ASSESSMENT - MENTAL STATUS Mental Status: Alert, Oriented - VITAL SIGNS Vital Signs: Last Vital Signs Temp 97.2 F 08/12/21 07:03 Pulse 66 08/12/21 06:25 Resp 20 08/12/21 06:25 BP 135/86 08/12/21 06:25 Pulse Ox 94 L 08/12/21 06:25 0928 116/63 82 22 97.5 96% - RESPIRATORY Respiratory Status: Respiratory Rate WNL, Airway Patent, O2 Saturation Stable, Supplemental Oxygen - CARDIOVASCULAR CV Status: Pulse Rate WNL, Blood Pressure Stable - GASTROINTESTINAL GI Status: No Symptoms - PAIN Pain Score: 0 - POST OP HYDRATION Hydration Status: Adequate & Stable
--- NOTE | 2021-08-12 09:55 | PCM.SN.2 ---
- Free Text/Narrative Note: Right selective femoral nerve block at the adductor canal for post-procedure pain control under US guidance requested by Dr. Last. Date: 08/12/21 Time Out: 942 Start: 942 End: 949 Chart reviewed. Consent signed. Questions answered. Appropriate monitors applied. Time out performed. Right mid-shaft femur identified with ultrasound, scanning medially of femur, the femoral artery in the adductor canal visualized, and the femoral nerve located laterally to the artery. The skin was prepped lateral to the ultrasound probe with chlorahexadine times two. The 21ga 4 insulated block needle was inserted under direct ultrasound guidance into the adductor canal. 25mL of 0.5% ropivacaine with 1:200,000 epinephrine was injected circumferentially around the nerve with intermittent negative aspiration noted. Patient tolerated the procedure well. Sterile technique noted along with sterile gloves, mask, and sterile probe cover. See picture on progress note and vital signs on nurses notes. Block completed in PACU. Alfa Whalen CRNA Time Documentation
[2021-08-12] MEDS ORDERED: oxyCODONE 5 MG Tab PO ONE (11:00)
--- NOTE | 2021-08-12 11:25 | CR ---
Right knee: AP and crosstable lateral views of the right knee were obtained. Comparison: Prior right knee radiographic study of 11/02/17. Right knee prosthesis is noted. Patellar component and femoral component appear to be maintained. Tibial component appears to have changed. Soft tissue air is seen. No underlying bony abnormality is appreciated. Impression: 1. Satisfactory postop radiographic appearance of recently placed tibial prosthesis. Diagnostic code #2
[2021-08-12 12:30] VITALS: BP 126/81; PULSE 73
--- NOTE | 2021-08-12 12:47 | PCM48HPAN ---
Post Anesthesia Note - EVALUATION WITHIN 48HRS OF ANESTHETIC Vital Signs in Normal Range: Yes Patient Participated in Evaluation: Yes Respiratory Function Stable: Yes Airway Patent: Yes Cardiovascular Function Stable: Yes Hydration Status Stable: Yes Pain Control Satisfactory: Yes Nausea and Vomiting Control Satisfactory: Yes Mental Status Recovered: Yes Vital Signs: Last Vital Signs Temp 36.9 C 08/12/21 12:20 Pulse 73 08/12/21 12:20 Resp 18 08/12/21 12:20 BP 126/81 08/12/21 12:20 Pulse Ox 97 08/12/21 12:20
--- NOTE | 2021-08-20 06:58 | PCM.OPNOTE ---
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
--- NOTE | 2021-08-21 07:36 | OR ---
DATE OF OPERATION: 08/12/2021 SURGEON: Gal Last MD OPERATION PERFORMED: Revision of right tibial component of total knee arthroplasty. PREOPERATIVE DIAGNOSIS: Painful right total knee arthroplasty. POSTOPERATIVE DIAGNOSIS: Painful right total knee arthroplasty. ANESTHESIA: Local MAC with spinal. ANESTHESIA PROVIDER: lAfa Whalen CRNA ASSISTANTS: Natasha Allen PA-C and Coreen Awad RN ESTIMATED BLOOD LOSS: 5 mL. COMPLICATIONS: None. CONDITION: Stable. IMPLANTS: 1. [place] size 6 [place] tibial base plate cemented. 2. Gray size 13 mm PS polyethylene. DESCRIPTION OF PROCEDURE: The patient was identified in the preop holding area. Proper site was marked and identified by the surgeon. The patient was taken back to the operating theater, where after adequate anesthesia, the patient's right lower extremity had a nonsterile tourniquet applied and was then sterilely prepped and draped in usual sterile fashion. OR time-out was performed. The patient received 2 g IV Ancef. Right lower extremity was exsanguinated. Tourniquet was insufflated to 250 mmHg. Previous incision was utilized and a medial parapatellar arthrotomy was created. Deep fibers of the MCL were raised. The patient was noted to have a significant amount of scar tissue on the lateral side. This was completely resected as well as around the patella. Patella was intact. No signs of loosening or osteolysis. Femur was intact. No signs of osteolysis or loosening. The patient had no signs of infection or effusion. At this time, attention was turned to the tibial baseplate. It was noted to have some loosening. With the use of curette and reciprocating saw, I was able to loosen the tibial component and extract it. The patient was noted to have a lot of scar tissue, so again we did have to remove a lot of scar tissue to mobilize his femur posteriorly to get the tibial component out. Once I was able to get the tibial component out, I used the extra-articular tibial guide centered with the tibial tubercle. This was then placed for about 3 degrees of slope and resection of 2 mm off the exposed tibia. At this time, resection for 2 mm was carried out. It was found to be an adequate resection with good bleeding cancellous bone. Size 6 trial baseplate was then placed in proper position. We trialed an 11 mm poly. It was noted to have a minor amount of varus/valgus instability, so a 13 mm poly was placed and it had gnosticism of varus/valgus stability and the patient had full extension and flexion with no signs of osteophyte or loosening or liftoff. At this time, trial implants were removed. Tibia was stamped and drilled in proper rotation. Cement was mixed on the back table. A size 6 tibial baseplate was then cemented into place. 13 mm PS X3 polyethylene was then placed. The patient's knee was brought to full extension. Excess cement was removed. At this time, 1 L pulse lavage irrigation with Ancef was irrigated through the knee along with 400 mL Irrisept irrigation. Topical tranexamic acid and vancomycin powder were applied. Periarticular injection was completed. #2 barbed suture was used for closure of the medial parapatellar arthrotomy. 2-0 Vicryl and Stratafix were used for subcutaneous closure, and Prineo was used for skin closure. The patient tolerated the procedure well and was sent to PACU in stable condition. MMODAL /[id number]
== END 2021-08-12 13:25 | disposition home or self-care (01) ==
LOC: JD.SDS 06:04
PROVIDERS: ATTEND Orthopaedic Surgery
DX: T84.84XA Pain due to internal orthopedic prosthetic devices, implants and grafts, initial encounter (principal); M17.11 Unilateral primary osteoarthritis, right knee; K21.9 Gastro-esophageal reflux disease without esophagitis; E66.01 Morbid (severe) obesity due to excess calories; G89.18 Other acute postprocedural pain; Z79.899 Other long term (current) drug therapy; Z98.890 Other specified postprocedural states; Z87.891 Personal history of nicotine dependence; Z68.42 Body mass index [BMI] 45.0-49.9, adult
CPT/HCPCS: 27486; 73560; 82947; 97116; 97161; A9270; C1713; C1776; J0171; J0690; J0697; J1170; J1885; J2250; J2270; J2370; J2405; J2704; J2795; J3010; J3370; J7120; 01402; 64450; 76942

== ENCOUNTER 2023-02-17 08:05 | Day surgery (SDC) | payer OTHER ==
[~2023-02-17 08:05] MED LIST changes: -Acetaminophen 325 MG Tab PO SCH; +Lactated Ringers 1,000 ML IV SCH; +Lidocaine 1%/Sod Bicarbonate in NS 8.4% 1 ML Syringe IDERM PRN; -Pregabalin 25 MG Cap PO SCH; +Sodium Chloride 0.9% 10 ML Syringe FLUSH PRN; +Sodium Chloride 0.9% 10 ML Syringe FLUSH SCH; -oxyCODONE ER 10 MG TAB.ER PO SCH
[2023-02-17] MEDS ORDERED: Propofol 200 MG/20 ML SDV ONE ×2 (09:52→10:15)
[2023-02-17] MEDS ORDERED: Lidocaine 1% 2 ML ONE (09:52)
[2023-02-17] MEDS ORDERED: fentaNYL 100 MCG/2 ML SDV ONE (09:52)
[2023-02-17] MEDS ORDERED: Midazolam 1 MG/ML 2 ML SDV ONE (09:53)
[2023-02-17 11:44] VITALS: BP 129/69; PULSE 70
== END 2023-02-17 11:38 | disposition home or self-care (01) ==
LOC: JD.SDS 08:05
PROVIDERS: ATTEND Surgery
DX: K31.89 Other diseases of stomach and duodenum (principal); K21.9 Gastro-esophageal reflux disease without esophagitis; K44.9 Diaphragmatic hernia without obstruction or gangrene; K29.70 Gastritis, unspecified, without bleeding; K57.30 Diverticulosis of large intestine without perforation or abscess without bleeding; K29.80 Duodenitis without bleeding; K62.89 Other specified diseases of anus and rectum; F41.9 Anxiety disorder, unspecified; F32.A Depression, unspecified; E78.5 Hyperlipidemia, unspecified; E66.01 Morbid (severe) obesity due to excess calories; Z87.891 Personal history of nicotine dependence; Z68.42 Body mass index [BMI] 45.0-49.9, adult; Z79.899 Other long term (current) drug therapy
CPT/HCPCS: 43239; 45378; J2250; J2704; J3010; J7120; J3490